=== PATIENT | female | born 1995 | race Caucasian/White ===

== ENCOUNTER 2023-04-29 07:59 | Outpatient (OUT) | payer OTHER, SELFPAY ==
--- NOTE | 2023-04-29 08:06 | US_ITS ---
The [address] [address] Patient Name: SANDIP NOWAK MRN: [id number] date: 1995 Sex: F Assigned Patient Location: US Current Patient Location: US Accession/Order Number: [id number] Exam Date: 04/29/2023 08:05 Report Date: 04/29/2023 15:06 At the request of: BENJIE MOODY Procedure: US OB transvaginal EXAMINATION: US OB transvaginal HISTORY: MISSED PERIOD COMPARISON: No relevant comparison available. FINDINGS: GESTATIONAL SAC: Present and normal appearing. YOLK SAC: Present and normal appearing. POLE: Present and normal appearing. CARDIAC: Present. UTERUS: Normal size and appearance. OVARIES: Right: Corpus lutein cyst. Left: Normal. CERVIX: 4.0 cm in length and closed. CUL-DE-SAC: Normal. OTHER: None. AGE BY LMP: 11 weeks 5 days HAI BY LMP: 11/13/2023 AGE BY US CRL: 11 weeks 1 day HAI BY US CRL: 11/17/2023 IMPRESSION: 1. Single live intrauterine . Electronically authenticated by: IDALMIS SAM Date: 04/29/2023 15:06
== END 2023-04-29 08:00 | disposition home or self-care (01) ==
LOC: US 08:00
PROVIDERS: Visit Provider Obstetrics & Gynecology
DX: N91.2 Amenorrhea, unspecified (principal); Z34.91 Encounter for supervision of normal pregnancy, unspecified, first trimester; Z3A.11 11 weeks gestation of pregnancy; N92.6 Irregular menstruation, unspecified
CPT/HCPCS: 76817

== ENCOUNTER 2023-05-01 15:42 | Outpatient (OUT) | payer OTHER, SELFPAY ==
[2023-05-01 16:15] LABS: Basophils Percent Auto 0.3 % (0.2-2.0); Eosinophils Absolute Auto 0.1 10^3/uL (0.0-0.7); Eosinophils Percent Auto 1.1 % (0.9-7.0); Hematocrit 36.7 % (36.0-48.0); Immature Granulocytes Abs Auto 0.01 10^3/uL (0.00-0.03); Immature Granulocytes Pct Auto 0.2 % (0.0-0.5); Lymphocytes Absolute Auto 1.4 10^3/uL (1.2-3.8); Lymphocytes Percent Auto 22.8 % (20.5-60.0); Mean Corpuscular HGB Conc 32.7 g/dL (29.9-35.2); Mean Corpuscular Hemoglobin 28.9 pg (26.7-34.0); Mean Corpuscular Volume 88.4 fL (81.0-99.0); Monocytes Absolute Auto 0.4 10^3/uL (0.3-0.8); Monocytes Percent Auto 6.5 % (1.7-12.0); Neutrophils Absolute Auto 4.3 10^3/uL (1.4-6.5); Neutrophils Percent Auto 69.1 % (43.0-75.0); Platelet Count 278 10^3/uL (150-450); Red Blood Count 4.15 10^6/uL (4.20-5.40); White Blood Count 6.2 10^3/uL (4.0-11.0)
[2023-05-01 16:58] LABS: Thyroid Stimulating Hormone 0.621 uIU/mL (0.358-3.740)
[2023-05-01 17:16] LABS: Estimated Average Glucose 91 mg/dL; Glycohemoglobin A1C 4.8 % (4.5-6.2)
[2023-05-03 08:09] LABS: Rubella Antibodies, IgG 2.93 index (Immune >0.99)
[2023-05-03 09:07] LABS: HBsAg Screen Negative (Negative); HCV Ab Non Reactive (Non Reactive); HIV Ab/p24 Ag Screen Non Reactive (Non Reactive); Rapid Plasma Reagin, Quant Non Reactive (NonRea<1:1)
== END 2023-05-01 15:43 ==
PROVIDERS: Visit Provider Obstetrics & Gynecology
DX: Z34.91 Encounter for supervision of normal pregnancy, unspecified, first trimester (principal)
CPT/HCPCS: 36415; 83036; 84443; 85025; 86592; 86762; 86803; 86850; 86900; 86901; 87086; 87340; 87389

== ENCOUNTER 2023-06-03 19:49 | Outpatient (REF) | payer OTHER, SELFPAY ==
[2023-06-09 10:20] LABS: Age Gdln ACOG Testing Note (.); IGP, rfx Aptima HPV ASCU Note (.)
== END 2023-06-03 19:50 | disposition home or self-care (01) ==
LOC: LAB 19:49
PROVIDERS: Visit Provider Obstetrics & Gynecology
DX: Z12.4 Encounter for screening for malignant neoplasm of cervix (principal); Z11.51 Encounter for screening for human papillomavirus (HPV)
CPT/HCPCS: G0145

== ENCOUNTER 2023-06-30 15:44 | Outpatient (OUT) | payer OTHER, SELFPAY ==
--- NOTE | 2023-06-30 | US_ITS ---
[address] [address] Patient Name: SANDIP NOWAK MRN: [id number] date: 1995 Sex: F Assigned Patient Location: US Current Patient Location: Accession/Order Number: [id number] Exam Date: 06/30/2023 16:05 Report Date: 07/01/2023 08:05 At the request of: BENJIE MOODY Procedure: US OB transvaginal PROCEDURE: US OB transvaginal, US OB anatomy HISTORY: Second Trimester COMPARISON: Ultrasound OB transvaginal 04/29/2023 TECHNIQUE: Transabdominal sonographic examination was performed for obstetrical and evaluation. FINDINGS: Number: 1 Heart Rate: 125.0 bpm H.B. /min Amniotic Fluid Volume: Subjectively normal Placental Location: POSTERIOR with lower margin 3.3 cm from os. Cervix Length: 4 cm, closed. ANATOMY: Normal Structures -cerebellum, choroid plexus, cisterna magna, lateral cerebral ventricles, orbits, midline falx, hard palate, four-chamber heart, RVOT, LVOT, stomach, kidneys, bladder, umbilical cord insertion into abdomen, three-vessel cord, cervical spine, thoracic spine, lumbar spine, sacral spine, right upper extremity, left upper extremity, right lower extremity, left lower extremity. SUBOPTIMALLY SEEN: None ABNORMALITIES: None BIOMETRY: BPD: 4.7 cm 20 weeks 1 days HC: 17.5 cm 20 weeks 0 days AC:15.3 cm 20 weeks 3 days FL: 3.0 cm 19 weeks 3 days EFW: 326.0 grams FL/AC: 19.9 FL/BPD: 65.1 HC/AC: 1.1 GESTATIONAL AGE: Age by EDC: 20 weeks 4 days HAI by EDC: 11/13/2023 Ultrasound Age: 20 weeks 0 days Ultrasound HAI: 11/17/2023 US/US OB transvaginal IMPRESSION: 1. Single live intrauterine with growth detailed above. Electronically authenticated by: IDALMIS SAM Date: 07/01/2023 08:05
--- NOTE | 2023-06-30 | US_ITS ---
[address] [address] Patient Name: SANDIP NOWAK MRN: [id number] date: 1995 Sex: F Assigned Patient Location: US Current Patient Location: Accession/Order Number: [id number] Exam Date: 06/30/2023 16:05 Report Date: 07/01/2023 08:05 At the request of: BENJIE MOODY Procedure: US OB anatomy PROCEDURE: US OB transvaginal, US OB anatomy HISTORY: Second Trimester COMPARISON: Ultrasound OB transvaginal 04/29/2023 TECHNIQUE: Transabdominal sonographic examination was performed for obstetrical and evaluation. FINDINGS: Number: 1 Heart Rate: 125.0 bpm H.B. /min Amniotic Fluid Volume: Subjectively normal Placental Location: POSTERIOR with lower margin 3.3 cm from os. Cervix Length: 4 cm, closed. ANATOMY: Normal Structures -cerebellum, choroid plexus, cisterna magna, lateral cerebral ventricles, orbits, midline falx, hard palate, four-chamber heart, RVOT, LVOT, stomach, kidneys, bladder, umbilical cord insertion into abdomen, three-vessel cord, cervical spine, thoracic spine, lumbar spine, sacral spine, right upper extremity, left upper extremity, right lower extremity, left lower extremity. SUBOPTIMALLY SEEN: None ABNORMALITIES: None BIOMETRY: BPD: 4.7 cm 20 weeks 1 days HC: 17.5 cm 20 weeks 0 days AC:15.3 cm 20 weeks 3 days FL: 3.0 cm 19 weeks 3 days EFW: 326.0 grams FL/AC: 19.9 FL/BPD: 65.1 HC/AC: 1.1 GESTATIONAL AGE: Age by EDC: 20 weeks 4 days HAI by EDC: 11/13/2023 Ultrasound Age: 20 weeks 0 days Ultrasound HAI: 11/17/2023 US/US OB anatomy IMPRESSION: 1. Single live intrauterine with growth detailed above. Electronically authenticated by: IDALMIS SAM Date: 07/01/2023 08:05
[2023-07-05 00:11] LABS: AFP Value 98.2 ng/mL (.); Gestat. Age Based On As provided (.); Maternal Age At EDD 27.8 yr (.); OSBR Risk 1 IN See interpretation. (.); Results Report (.)
== END 2023-06-30 15:45 | disposition home or self-care (01) ==
LOC: US 15:45
PROVIDERS: Visit Provider Obstetrics & Gynecology
DX: Z34.92 Encounter for supervision of normal pregnancy, unspecified, second trimester (principal)
CPT/HCPCS: 36415; 76805; 76817; 82105

== ENCOUNTER 2023-08-22 09:10 | Outpatient (OUT) | payer OTHER, SELFPAY ==
[2023-08-22 10:30] LABS: Basophils Percent Auto 0.7 % (0.2-2.0); Eosinophils Absolute Auto 0.1 10^3/uL (0.0-0.7); Eosinophils Percent Auto 1.2 % (0.9-7.0); Hematocrit 31.1 % (36.0-48.0); Immature Granulocytes Abs Auto 0.03 10^3/uL (0.00-0.03); Immature Granulocytes Pct Auto 0.5 % (0.0-0.5); Lymphocytes Absolute Auto 0.9 10^3/uL (1.2-3.8); Lymphocytes Percent Auto 14.7 % (20.5-60.0); Mean Corpuscular HGB Conc 32.2 g/dL (29.9-35.2); Mean Corpuscular Hemoglobin 28.9 pg (26.7-34.0); Mean Corpuscular Volume 89.9 fL (81.0-99.0); Mean Platelet Volume 10.2 fL (9.5-13.5); Monocytes Absolute Auto 0.4 10^3/uL (0.3-0.8); Monocytes Percent Auto 6.4 % (1.7-12.0); Neutrophils Absolute Auto 4.4 10^3/uL (1.4-6.5); Neutrophils Percent Auto 76.5 % (43.0-75.0); Platelet Count 201 10^3/uL (150-450); Red Blood Count 3.46 10^6/uL (4.20-5.40); Red Cell Distribution Width 14.2 % (11.0-15.0); White Blood Count 5.8 10^3/uL (4.0-11.0)
[2023-08-22 10:34] LABS: Glucose 1 Hour 161 mg/dL
== END 2023-08-22 09:11 | disposition home or self-care (01) ==
LOC: LAB 09:12
PROVIDERS: PCP Family Medicine; Visit Provider Obstetrics & Gynecology
DX: Z34.92 Encounter for supervision of normal pregnancy, unspecified, second trimester (principal)
CPT/HCPCS: 36415; 82950; 85025

== ENCOUNTER 2023-08-28 07:19 | Outpatient (OUT) | payer OTHER, SELFPAY ==
[2023-08-28 07:45] LABS: Glucose Fasting 83 mg/dL (74-106)
[2023-08-28 09:26] LABS: Glucose 1 Hour 159 mg/dL
[2023-08-28 10:26] LABS: Glucose 2 Hour 136 mg/dL
[2023-08-28 11:10] LABS: Glucose 3 Hour 97 mg/dL
== END 2023-08-28 07:20 | disposition home or self-care (01) ==
LOC: LAB 07:20
PROVIDERS: PCP Family Medicine; Visit Provider Physician Assistant
DX: R73.09 Other abnormal glucose (principal)
CPT/HCPCS: 36415; 82951; 82952

== ENCOUNTER 2023-10-19 21:40 | Outpatient (OUT) | payer OTHER, SELFPAY | END 2023-10-19 21:41 | disposition home or self-care (01) | LOC: LAB 21:43 | PROVIDERS: PCP Family Medicine; Visit Provider Obstetrics & Gynecology | DX: Z34.93 Encounter for supervision of normal pregnancy, unspecified, third trimester (principal) | CPT/HCPCS: 87081; 87150; 87186 ==

== ENCOUNTER 2023-10-26 04:08 | Inpatient (IN) | payer OTHER, SELFPAY ==
[2023-10-26] VITALS (39 sets, daily range): BP systolic 99–139; BP diastolic 54–80; PULSE 48–83; RESP 16–18; TEMP 36.1–37.7
[2023-10-26 04:47] LABS: Bilirubin Urine NEGATIVE (NEGATIVE); Blood Urine NEGATIVE (NEGATIVE); Clarity Urine CLEAR (CLEAR); Color Urine LT. YELLOW (YELLOW); Glucose Urine UA NEGATIVE (NEGATIVE); Ketones Urine NEGATIVE (NEGATIVE); Leukocyte Esterase Urine NEGATIVE (NEGATIVE); Nitrite Urine NEGATIVE (NEGATIVE); Protein Urine NEGATIVE (NEG/TRACE); Specific Gravity Urine 1.015 (1.005-1.025); Urobilinogen Urine 0.2 EU/dL (0.2-1.0)
[2023-10-26 04:49] LABS: Urine Microscopic Indicated NO
[2023-10-26 04:50] LABS: Amnisure POSITIVE (NEGATIVE)
[2023-10-26 06:23] LABS: Hematocrit 31.9 % (36.0-48.0); Hemoglobin 9.8 g/dL (12.0-16.0); Mean Corpuscular HGB Conc 30.7 g/dL (29.9-35.2); Mean Corpuscular Hemoglobin 26.2 pg (26.7-34.0); Mean Corpuscular Volume 85.3 fL (81.0-99.0); Mean Platelet Volume 11.7 fL (9.5-13.5); Platelet Count 189 10^3/uL (150-450); Red Blood Count 3.74 10^6/uL (4.20-5.40); Red Cell Distribution Width 14.6 % (11.0-15.0); White Blood Count 7.7 10^3/uL (4.0-11.0)
[2023-10-26] MEDS: 0.9 % SODIUM CHLORIDE 1,000 ML 125 ML IV (06:30)
[2023-10-26] MEDS: AMPICILLIN SODIUM 2,000 MG in 0.9 % SODIUM CHLORIDE 100 ML 200 MG IV (06:30)
[2023-10-26] MEDS: OXYTOCIN/0.9 % SODIUM CHLORIDE 10 UNITS/500 ML PLAST..BAG 6 UNIT IV (06:50)
--- NOTE | 2023-10-26 07:51 | W.PC.ACHO ---
Registration Status: ADM IN Primary Language: Afghan Preferred Language: Afghan Active Medications Generic Name Dose Route Start Last Admin Trade Name Freq PRN Reason Stop Dose Admin Diphenhydramine HCl 25 mg 10/26/23 06:57 Diphenhydramine Hcl 50 Mg/Ml (1ml) Vial IV 10/27/23 06:58 Q6H PRN Itching Ephedrine Sulfate 5 mg 10/26/23 06:57 Ephedrine Sulfate 50 Mg/Ml Vial IV 10/27/23 06:58 Q5M PRN Blood Pressure - Low Fentanyl Citrate 100 mcg 10/26/23 06:57 Fentanyl Citrate/Pf 100 Mcg/2 Ml Vial EPIDURAL ONCE PRN epidural Fentanyl Citrate 100 mcg 10/26/23 06:57 Fentanyl Citrate/Pf 100 Mcg/2 Ml Vial EPIDURAL ONCE PRN epidural Sodium Chloride 1,000 mls @ 125 mls/hr 10/26/23 05:15 10/26/23 06:30 Sodium Chloride 0.9% 1,000 Ml IV 125 mls/hr .Q8H MAYO Administration Oxytocin/Sodium Chloride 10 units in 500 mls @ 6 mls/hr 10/26/23 05:15 10/26/23 06:50 Pitocin 10 Unit/500 Ml-Ns IV 2 milliunit/min CONT MAYO 6 mls/hr Administration Protocol 2 MILLIUNIT/MIN Ampicillin 1,000 mg/ Sodium 50 mls @ 100 mls/hr 10/26/23 09:30 Chloride IV Q4H MAYO Oxytocin/Sodium Chloride 20 units in 1,000 mls @ 125 mls/hr 10/26/23 05:15 Pitocin 20 Unit/1,000 Ml-Ns IV 10/26/23 13:14 Q8H MAYO Sodium Chloride 1,000 mls @ 1,000 mls/hr 10/26/23 06:57 Sodium Chloride 0.9% 1,000 Ml IV 10/26/23 07:56 .Q1H ONE Ropivacaine/Sodium Chloride 400 mg in 200 mls @ 6 mls/hr 10/26/23 07:00 Naropin 0.2% 400 Mg/200 Ml Bag EPIDURAL Q24H MAYO Lidocaine 5 ml 10/26/23 05:15 Lidocaine Viscous 2% 15 Ml Solution TOPICAL ONCE PRN Pain Lidocaine 1 ml 10/26/23 05:15 Lidocaine Hcl 1% 200 Mg/20 Ml Mdv INJ ONCE PRN Pain Lidocaine 5 ml 10/26/23 06:57 Lidocaine Hcl 2% Pf 100 Mg/5 Ml Vial INJ 10/27/23 06:58 Q1H PRN epidural Methylergonovine Maleate 0.2 mg 10/26/23 05:15 Methylergonovine Maleate 0.2 Mg/Ml Ampule IM 10/28/23 05:15 ONCE PRN Uterine Contractility/Contract Methylergonovine Maleate 0.2 mg 10/26/23 05:15 Methylergonovine Maleate 0.2 Mg Tablet PO 10/28/23 05:15 Q4H PRN Uterine Contractility/Contract Misoprostol 600 mcg 10/26/23 05:15 Misoprostol 100 Mcg Tablet PO 10/28/23 05:15 ONCE PRN Uterine Bleeding Misoprostol 800 mcg 10/26/23 05:15 Misoprostol 100 Mcg Tablet SL 10/28/23 05:15 ONCE PRN Uterine Bleeding Misoprostol 1,000 mcg 10/26/23 05:15 Misoprostol 100 Mcg Tablet SC 10/28/23 05:15 ONCE PRN Uterine Bleeding Naloxone HCl 0.4 mg 10/26/23 06:57 Naloxone Hcl 0.4 Mg/Ml Vial IV 10/27/23 06:58 ONCE PRN respiratory distress Ondansetron HCl 4 mg 10/26/23 05:15 Ondansetron Pf 4 Mg/2 Ml Vial IV Q6H PRN Nausea And Vomiting Ondansetron HCl 4 mg 10/26/23 05:15 Ondansetron 4 Mg Rapdis Tablet SL Q6H PRN Nausea And Vomiting Oxytocin 10 unit 10/26/23 05:15 Oxytocin 10 Unit/Ml Vial IM 10/28/23 05:15 ONCE PRN Bleeding Diet Category Date Time Status Regular Consistency Diet Diet 10/26/23 05:16 Active IV Insertion/Site Date of IV Line Insertion [20g 10/26/23 right Forearm] IV Insertion Time [20g right 05:55 Forearm] Neurology Patient orientation (short person,place,time,situation list)
[2023-10-26] MEDS: LIDOCAINE HCL 2% PF 100 MG/5 ML VIAL INJ (08:09)
[2023-10-26] MEDS: ROPIVACAINE HCL/PF 400 MG/200 ML PREMIX 6 MG EPIDURAL (08:09)
[2023-10-26] MEDS: FENTANYL CITRATE/PF 100 MCG/2 ML VIAL EPIDURAL ×2 (08:09→08:10)
[2023-10-26] MEDS: 0.9 % SODIUM CHLORIDE 1,000 ML 1000 ML IV (08:18)
[2023-10-26] MEDS: AMPICILLIN SODIUM 1,000 MG in 0.9 % SODIUM CHLORIDE 50 ML 100 MG IV (09:39)
[2023-10-26] MEDS: OXYTOCIN/0.9 % SODIUM CHLORIDE 20 UNITS/1,000 ML PLAST..BAG 125 UNIT IV (10:45)
--- NOTE | 2023-10-26 11:02 | PM.OBPRCVD ---
Procedure Intrapartal events: None Delivery augmentation: pitocin Delivery monitor: external FHT and external uterine Route of delivery: Episiotomy Description: none Laceration description: none Anesthesia type: Epidural Disposition: floor Infant Gender: male presentation: vertex Placental delivery description: Spontaneous cord description: 3 Vessels
[2023-10-26] MEDS: IBUPROFEN 600 MG TABLET PO ×2 (11:44→21:14)
[2023-10-26 15:48] LABS: Amphetamine Screen Urine NEGATIVE (NEGATIVE); Barbiturates Screen Urine NEGATIVE (NEGATIVE); Benzodiazepines Screen Urine NEGATIVE (NEGATIVE); Buprenorphine Screen Urine NEGATIVE (NEGATIVE); Cannabinoid Screen Urine NEGATIVE (NEGATIVE); Cocaine Screen Urine NEGATIVE (NEGATIVE); Methadone Screen Urine NEGATIVE (NEGATIVE); Methamphetamines Screen Urine NEGATIVE (NEGATIVE); Opiate Screen Urine NEGATIVE (NEGATIVE); Oxycodone Screen Urine NEGATIVE (NEGATIVE); Phencyclidine Screen Urine NEGATIVE (NEGATIVE); Tricyclic Antidepressant Urine NEGATIVE (NEGATIVE)
[2023-10-26] MEDS: BENZOCAINE/MENTHOL 85 GRAM SPRAY BOTTLE 1 APPLIC TOPICAL (16:21)
[2023-10-26] MEDS: GLYCERIN/WITCH HAZEL PADS 1 PAD TOPICAL (16:22)
--- NOTE | 2023-10-26 16:51 | PC.NURSE ---
agree with student assessment- Ronald LANEN, RN -[place] Clinical Instructor
--- NOTE | 2023-10-26 17:05 | PC.NURSE ---
Agree with student assessment- Ronald LANEN, RN - [place] clinical instructor
--- NOTE | 2023-10-26 19:11 | W.PC.ACHO ---
Registration Status: ADM IN Primary Language: Qatari Preferred Language: Qatari Active Medications Generic Name Dose Route Start Last Admin Trade Name Maria Antonia PRN Reason Stop Dose Admin Acetaminophen 650 mg 10/26/23 11:01 Acetaminophen 325 Mg Tablet PO Q6H PRN Mild Pain Al Hydroxide/Mg Hydroxide 2,400 mg 10/26/23 11:01 Magnesium Hydroxide 2,400 Mg/10 Ml Oral.Susp PO Q6H PRN Dyspepsia Benzocaine/Menthol 1 applic 10/26/23 11:01 10/26/23 16:21 Benzocaine/Menthol 85 Gram [place] Bottle TOPICAL 1 applic Q2H PRN Administration Pain Diphenhydramine HCl 25 mg 10/26/23 06:57 Diphenhydramine Hcl 50 Mg/Ml (1ml) Vial IV 10/27/23 06:58 Q6H PRN Itching Diphtheria/Pertussis/Tetanus Vacc 0.5 ml 10/28/23 09:00 Adacel Diph,Pertuss(Acell),Tet Vac/Pf 0.5 Ml Adult Syringe IM 10/28/23 09:01 .ONCE ONE Docusate Sodium 100 mg 10/27/23 09:00 Docusate Sodium 100 Mg Capsule PO BID MAYO Ephedrine Sulfate 5 mg 10/26/23 06:57 Ephedrine Sulfate 50 Mg/Ml Vial IV 10/27/23 06:58 Q5M PRN Blood Pressure - Low Fentanyl Citrate 100 mcg 10/26/23 06:57 10/26/23 08:09 Fentanyl Citrate/Pf 100 Mcg/2 Ml Vial EPIDURAL 100 mcg ONCE PRN Administration epidural Fentanyl Citrate 100 mcg 10/26/23 06:57 10/26/23 08:10 Fentanyl Citrate/Pf 100 Mcg/2 Ml Vial EPIDURAL 100 mcg ONCE PRN Administration epidural Sodium Chloride 1,000 mls @ 125 mls/hr 10/26/23 05:15 10/26/23 06:30 Sodium Chloride 0.9% 1,000 Ml IV 125 mls/hr .Q8H MAYO Administration Oxytocin/Sodium Chloride 10 units in 500 mls @ 6 mls/hr 10/26/23 05:15 10/26/23 06:50 Pitocin 10 Unit/500 Ml-Ns IV 2 milliunit/min CONT MAYO 6 mls/hr Administration Protocol 2 MILLIUNIT/MIN Ampicillin 1,000 mg/ Sodium 50 mls @ 100 mls/hr 10/26/23 09:30 10/26/23 09:39 Chloride IV 100 mls/hr Q4H MAYO Administration Ropivacaine/Sodium Chloride 400 mg in 200 mls @ 6 mls/hr 10/26/23 07:00 10/26/23 08:09 Naropin 0.2% 400 Mg/200 Ml Bag EPIDURAL 6 mls/hr Q24H MAYO Administration Oxytocin 20 unit/ Sodium 1,002 mls @ 125 mls/hr 10/26/23 12:00 Chloride IV 10/26/23 19:59 Q8H MAYO Ibuprofen 600 mg 10/26/23 11:01 10/26/23 11:44 Ibuprofen 600 Mg Tablet PO 600 mg Q6H PRN Administration Moderate Pain Lidocaine 5 ml 10/26/23 05:15 Lidocaine Viscous 2% 15 Ml Solution TOPICAL ONCE PRN Pain Lidocaine 1 ml 10/26/23 05:15 Lidocaine Hcl 1% 200 Mg/20 Ml Mdv INJ ONCE PRN Pain Lidocaine 5 ml 10/26/23 06:57 10/26/23 08:09 Lidocaine Hcl 2% Pf 100 Mg/5 Ml Vial INJ 10/27/23 06:58 5 ml Q1H PRN Administration epidural Measles/Mumps/Rubella Vaccine Live 0.5 ml 10/28/23 09:00 Measles,Mumps,Rubella Vacc/Pf 0.5 Ml Vial SQ 10/28/23 09:01 .ONCE ONE Methylergonovine Maleate 0.2 mg 10/26/23 05:15 Methylergonovine Maleate 0.2 Mg/Ml Ampule IM 10/28/23 05:15 ONCE PRN Uterine Contractility/Contract Methylergonovine Maleate 0.2 mg 10/26/23 05:15 Methylergonovine Maleate 0.2 Mg Tablet PO 10/28/23 05:15 Q4H PRN Uterine Contractility/Contract Misoprostol 600 mcg 10/26/23 05:15 Misoprostol 100 Mcg Tablet PO 10/28/23 05:15 ONCE PRN Uterine Bleeding Misoprostol 800 mcg 10/26/23 05:15 Misoprostol 100 Mcg Tablet SL 10/28/23 05:15 ONCE PRN Uterine Bleeding Misoprostol 1,000 mcg 10/26/23 05:15 Misoprostol 100 Mcg Tablet [place] 10/28/23 05:15 ONCE PRN Uterine Bleeding Naloxone HCl 0.4 mg 10/26/23 06:57 Naloxone Hcl 0.4 Mg/Ml Vial IV 10/27/23 06:58 ONCE PRN respiratory distress Ondansetron HCl 4 mg 10/26/23 05:15 Ondansetron Pf 4 Mg/2 Ml Vial IV Q6H PRN Nausea And Vomiting Ondansetron HCl 4 mg 10/26/23 05:15 Ondansetron 4 Mg Rapdis Tablet SL Q6H PRN Nausea And Vomiting Oxytocin 10 unit 10/26/23 05:15 Oxytocin 10 Unit/Ml Vial IM 10/28/23 05:15 ONCE PRN Bleeding Senna 17.2 mg 10/26/23 20:00 Sennosides 8.6 Mg Tablet PO QHS PRN Constipation Simethicone 80 mg 10/26/23 11:01 Simethicone 80 Mg Tab.Chew PO QID PRN Abdominal Distention Temazepam 15 mg 10/26/23 11:01 Temazepam 15 Mg Capsule PO QHS PRN Sleep Witch Bernice/Glycerin 1 pad 10/26/23 11:01 10/26/23 16:22 Glycerin/Witch Bernice Pads TOPICAL 1 pad Q2H PRN Administration Pain Diet Category Date Time Status Regular Consistency Diet Diet 10/26/23 11:01 Active IV Insertion/Site Date of IV Line Insertion [20g 10/26/23 right Forearm] IV Insertion Time [20g right 05:55 Forearm] Neurology Patient orientation (short person,place,time,situation list) Respiratory Oxygen Delivery Method Room Air Cardiology Heart Sounds Strong,Regular Renal Bladder Pattern Continent Bladder Pattern Continent
[2023-10-27] VITALS (7 sets, daily range): BP systolic 106–111; BP diastolic 56–64; PULSE 67–68; RESP 14–18; TEMP 36.6–37.1
[2023-10-27 06:31] LABS: Basophils Percent Auto 0.5 % (0.2-2.0); Eosinophils Absolute Auto 0.2 10^3/uL (0.0-0.7); Eosinophils Percent Auto 1.8 % (0.9-7.0); Hemoglobin 9.2 g/dL (12.0-16.0); Immature Granulocytes Abs Auto 0.05 10^3/uL (0.00-0.03); Immature Granulocytes Pct Auto 0.6 % (0.0-0.5); Lymphocytes Absolute Auto 1.8 10^3/uL (1.2-3.8); Lymphocytes Percent Auto 21.3 % (20.5-60.0); Mean Corpuscular HGB Conc 30.7 g/dL (29.9-35.2); Mean Corpuscular Hemoglobin 26.5 pg (26.7-34.0); Mean Corpuscular Volume 86.5 fL (81.0-99.0); Mean Platelet Volume 11.5 fL (9.5-13.5); Monocytes Absolute Auto 0.7 10^3/uL (0.3-0.8); Monocytes Percent Auto 8.3 % (1.7-12.0); Neutrophils Absolute Auto 5.6 10^3/uL (1.4-6.5); Neutrophils Percent Auto 67.5 % (43.0-75.0); Platelet Count 166 10^3/uL (150-450); Red Blood Count 3.47 10^6/uL (4.20-5.40); Red Cell Distribution Width 14.8 % (11.0-15.0); White Blood Count 8.2 10^3/uL (4.0-11.0)
--- NOTE | 2023-10-27 07:11 | W.PC.ACHO ---
Registration Status: ADM IN Primary Language: Israeli Preferred Language: Israeli Active Medications Generic Name Dose Route Start Last Admin Trade Name Maria Antonia PRN Reason Stop Dose Admin Acetaminophen 650 mg 10/26/23 11:01 Acetaminophen 325 Mg Tablet PO Q6H PRN Mild Pain Al Hydroxide/Mg Hydroxide 2,400 mg 10/26/23 11:01 Magnesium Hydroxide 2,400 Mg/10 Ml Oral.Susp PO Q6H PRN Dyspepsia Benzocaine/Menthol 1 applic 10/26/23 11:01 10/26/23 16:21 Benzocaine/Menthol 85 Gram [place] Bottle TOPICAL 1 applic Q2H PRN Administration Pain Diphtheria/Pertussis/Tetanus Vacc 0.5 ml 10/28/23 09:00 Adacel Diph,Pertuss(Acell),Tet Vac/Pf 0.5 Ml Adult Syringe IM 10/28/23 09:01 .ONCE ONE Docusate Sodium 100 mg 10/27/23 09:00 Docusate Sodium 100 Mg Capsule PO BID MAYO Fentanyl Citrate 100 mcg 10/26/23 06:57 10/26/23 08:09 Fentanyl Citrate/Pf 100 Mcg/2 Ml Vial EPIDURAL 100 mcg ONCE PRN Administration epidural Fentanyl Citrate 100 mcg 10/26/23 06:57 10/26/23 08:10 Fentanyl Citrate/Pf 100 Mcg/2 Ml Vial EPIDURAL 100 mcg ONCE PRN Administration epidural Sodium Chloride 1,000 mls @ 125 mls/hr 10/26/23 05:15 10/26/23 06:30 Sodium Chloride 0.9% 1,000 Ml IV 125 mls/hr .Q8H MAYO Administration Oxytocin/Sodium Chloride 10 units in 500 mls @ 6 mls/hr 10/26/23 05:15 10/26/23 06:50 Pitocin 10 Unit/500 Ml-Ns IV 2 milliunit/min CONT MAYO 6 mls/hr Administration Protocol 2 MILLIUNIT/MIN Ampicillin 1,000 mg/ Sodium 50 mls @ 100 mls/hr 10/26/23 09:30 10/26/23 09:39 Chloride IV 100 mls/hr Q4H MAYO Administration Ropivacaine/Sodium Chloride 400 mg in 200 mls @ 6 mls/hr 10/26/23 07:00 10/26/23 08:09 Naropin 0.2% 400 Mg/200 Ml Bag EPIDURAL 6 mls/hr Q24H MAYO Administration Ibuprofen 600 mg 10/26/23 11:01 10/26/23 21:14 Ibuprofen 600 Mg Tablet PO 600 mg Q6H PRN Administration Moderate Pain Lidocaine 5 ml 10/26/23 05:15 Lidocaine Viscous 2% 15 Ml Solution TOPICAL ONCE PRN Pain Lidocaine 1 ml 10/26/23 05:15 Lidocaine Hcl 1% 200 Mg/20 Ml Mdv INJ ONCE PRN Pain Measles/Mumps/Rubella Vaccine Live 0.5 ml 10/28/23 09:00 Measles,Mumps,Rubella Vacc/Pf 0.5 Ml Vial SQ 10/28/23 09:01 .ONCE ONE Methylergonovine Maleate 0.2 mg 10/26/23 05:15 Methylergonovine Maleate 0.2 Mg/Ml Ampule IM 10/28/23 05:15 ONCE PRN Uterine Contractility/Contract Methylergonovine Maleate 0.2 mg 10/26/23 05:15 Methylergonovine Maleate 0.2 Mg Tablet PO 10/28/23 05:15 Q4H PRN Uterine Contractility/Contract Misoprostol 600 mcg 10/26/23 05:15 Misoprostol 100 Mcg Tablet PO 10/28/23 05:15 ONCE PRN Uterine Bleeding Misoprostol 800 mcg 10/26/23 05:15 Misoprostol 100 Mcg Tablet SL 10/28/23 05:15 ONCE PRN Uterine Bleeding Misoprostol 1,000 mcg 10/26/23 05:15 Misoprostol 100 Mcg Tablet [place] 10/28/23 05:15 ONCE PRN Uterine Bleeding Ondansetron HCl 4 mg 10/26/23 05:15 Ondansetron Pf 4 Mg/2 Ml Vial IV Q6H PRN Nausea And Vomiting Ondansetron HCl 4 mg 10/26/23 05:15 Ondansetron 4 Mg Rapdis Tablet SL Q6H PRN Nausea And Vomiting Oxytocin 10 unit 10/26/23 05:15 Oxytocin 10 Unit/Ml Vial IM 10/28/23 05:15 ONCE PRN Bleeding Senna 17.2 mg 10/26/23 20:00 Sennosides 8.6 Mg Tablet PO QHS PRN Constipation Simethicone 80 mg 10/26/23 11:01 Simethicone 80 Mg Tab.Chew PO QID PRN Abdominal Distention Temazepam 15 mg 10/26/23 11:01 Temazepam 15 Mg Capsule PO QHS PRN Sleep Witch Bernice/Glycerin 1 pad 10/26/23 11:01 10/26/23 16:22 Glycerin/Witch [place] Pads TOPICAL 1 pad Q2H PRN Administration Pain Diet Category Date Time Status Regular Consistency Diet Diet 10/26/23 11:01 Active Respiratory Oxygen Delivery Method Room Air Oxygen Delivery Method Room Air Oxygen Delivery Method Room Air Oxygen Delivery Method Room Air Cardiology Heart Sounds Strong,Regular Heart Sounds Strong,Regular Heart Sounds Strong,Regular Renal Bladder Pattern Continent Bladder Pattern Continent Bladder Pattern Continent Bladder Pattern Continent
[2023-10-27] MEDS: DOCUSATE SODIUM 100 MG CAPSULE PO ×2 (08:23→20:54)
[2023-10-27] MEDS: IBUPROFEN 600 MG TABLET PO ×2 (08:23→20:54)
--- NOTE | 2023-10-27 11:49 | PM.OBDS ---
DS: Providers Provider Date of admission: 10/26/23 05:20 Primary care physician: ANGELICA LOJA OB - DS: Summary Delivery method: spontaneous vaginal delivery Gender: male Time Spent with Patient Time attestation: Total time spent providing and/or coordinating discharge services: Time spent: less than 30 minutes Exam Constitutional Vital Signs, click to edit/add: Last Vital Signs Temp 98.7 F 10/27/23 08:38 Pulse 67 10/27/23 08:12 Resp 16 10/27/23 08:00 BP 106/59 10/27/23 08:12 O2 Del Method Room Air 10/27/23 08:00 DS: Data Data Completed and Pending Labs on day of discharge: Labs from last 24 hours 10/27/23 10/26/23 06:15 04:17 WBC 8.2 RBC 3.47 L Hgb 9.2 L Hct 30.0 L MCV 86.5 MCH 26.5 L MCHC 30.7 RDW 14.8 Plt Count 166 MPV 11.5 Neut % (Auto) 67.5 Lymph % (Auto) 21.3 [place] % (Auto) 8.3 Eos % (Auto) 1.8 Baso % (Auto) 0.5 Neut # (Auto) 5.6 Lymph # (Auto) 1.8 [place] # (Auto) 0.7 Eos # (Auto) 0.2 Baso # (Auto) 0.0 Abs Immat Gran (auto) 0.05 H Imm/Tot Granulo (auto) 0.6 H Urine Opiates Screen Negative Ur Buprenorphine Scrn Negative Ur Oxycodone Screen Negative Urine Methadone Screen Negative Ur Barbiturates Screen Negative U Tricyclic Antidepress Negative Ur Phencyclidine Scrn Negative Ur Amphetamines Screen Negative U Methamphetamines Scrn Negative U Benzodiazepines Scrn Negative Urine Cocaine Screen Negative U Cannabinoids Screen Negative Discharge Plan Discharge Disposition: Home, Self-Care Discharge Medications: Continued ProAir RespiClick 90 mcg/actuation aerosol powdr breath activated INHALATION Activity: increase activity as tolerated Diet: regular diet Forms: Vaginal Delivery - Discharge, Portal Instructions Follow Up Appointments: follow up in 6 weeks Discharge Date/Time: 10/28/23 12:15
--- NOTE | 2023-10-27 11:51 | PM.OBPN ---
OB - PN: Subj Subjective Patient comments: no complaints and pain well controlled [place] status: doing well Exam Constitutional Vital Signs, click to edit/add: Last Vital Signs Temp 98.7 F 10/27/23 08:38 Pulse 67 10/27/23 08:12 Resp 16 10/27/23 08:00 BP 106/59 10/27/23 08:12 O2 Del Method Room Air 10/27/23 08:00 Documenting provider has reviewed patient's vital signs: yes Common normals: no apparent distress and oriented x3 HENMT Common normals: normocephalic Eye Common normals: EOMs intact bilaterally Neck & C-Spine Common normals: full ROM and no lymphadenopathy General: normal visual inspection Lymph Lymphatic: no lymphadenopathy noted Chest Common normals: inspection of chest normal and palpation of chest normal Respiratory Common normals: normal respiratory effort, no use of accessory muscles and clear to auscultation bilaterally Cardio Common normals: regular rate, regular rhythm and no murmurs GI Common normals: Normal to inspection, nondistended, normoactive bowel sounds present Common normals: no CVA tenderness Back & Pelvis Common normals: no CVA tenderness Extremity Common normals: normal to inspection and full ROM Neuro Common normals: oriented x3 Sensorium/orientation: awake, alert, oriented to person, oriented to place and oriented to time Psych Common normals: mental status grossly normal Results Labs Labs: Short CBC 10/27/23 Range/Units 06:15 WBC 8.2 (4.0-11.0) 10^3/uL Hgb 9.2 L (12.0-16.0) g/dL Hct 30.0 L (36.0-48.0) % Plt Count 166 (150-450) 10^3/uL OB - PN: A/P Plan - Vaginal Delivery day: 1 Plan: routine care Time Spent with Patient Time: Total time spent is greater than 50% in coordination of care (as documented) at patient's floor/unit and/or counseling patient: Total time spent with greater than 50% in coordination of care (as documented) at patient's floor/unit and/or counseling patient: less than 15 minutes
--- NOTE | 2023-10-27 18:56 | PC.NURSE ---
185 All charting, VS, and assessments made by Rocio Dodge nurse internal salesperson reviewed and agreed upon by this RN.
[2023-10-27] MEDS: ACETAMINOPHEN 325 MG TABLET 650 MG PO (19:04)
[2023-10-28 08:05] VITALS: BP 107/55; PULSE 56
[2023-10-28 08:10] VITALS: TEMP 36.6
[2023-10-28] MEDS: ACETAMINOPHEN 325 MG TABLET 650 MG PO (08:14)
[2023-10-28] MEDS: DOCUSATE SODIUM 100 MG CAPSULE PO (08:14)
--- NOTE | 2023-10-28 10:21 | P.OBPN_ITS ---
OB - PN: Subj Subjective Patient comments: no complaints and pain well controlled [place] status: doing well Exam Constitutional Vital Signs, click to edit/add: Last Vital Signs Temp 97.8 F 10/28/23 08:10 Pulse 56 L 10/28/23 08:05 Resp 18 10/27/23 23:10 BP 107/55 10/28/23 08:05 O2 Del Method Room Air 10/28/23 08:10 Documenting provider has reviewed patient's vital signs: yes Common normals: no apparent distress Respiratory Common normals: normal respiratory effort and clear to auscultation bilaterally Cardio Common normals: regular rate and regular rhythm GI Common normals: Normal to inspection, nondistended, normoactive bowel sounds present Extremity Common normals: no calf tenderness OB - PN: A/P Plan - Vaginal Delivery day: 2 Plan: routine care, discharge home and follow up 6 weeks Time Spent with Patient Time: Total time spent is greater than 50% in coordination of care (as documented) at patient's floor/unit and/or counseling patient: Total time spent with greater than 50% in coordination of care (as documented) at patient's floor/unit and/or counseling patient: less than 15 minutes
== END 2023-10-28 12:15 | disposition home or self-care (01) | DRG 807 ==
PROVIDERS: Admitting Provider Obstetrics & Gynecology; PCP Family Medicine; Visit Provider Obstetrics & Gynecology
DX: O99.52 Diseases of the respiratory system complicating childbirth (principal); Z37.0 Single live birth; O70.0 First degree perineal laceration during delivery; O99.824 Streptococcus B carrier state complicating childbirth; Z3A.37 37 weeks gestation of pregnancy; J45.909 Unspecified asthma, uncomplicated
CPT/HCPCS: 36415; 51702; 59025; 59050; 59410; 80307; 81003; 84112; 85025; 85027; 86850; 86900; 86901; 96374; 96375; 96376

== ENCOUNTER 2023-12-07 09:48 | Outpatient (OUT) | payer OTHER, SELFPAY | END 2023-12-07 09:49 | disposition home or self-care (01) | LOC: PST 09:49 | PROVIDERS: PCP Family Medicine; Visit Provider Obstetrics & Gynecology | DX: Z01.818 Encounter for other preprocedural examination (principal); Z30.2 Encounter for sterilization ==

== ENCOUNTER 2023-12-18 08:40 | Day surgery (SDC) | payer OTHER, SELFPAY ==
[2023-12-07 10:06] VITALS: BP 91/57; PULSE 72; RESP 16; TEMP 35.4; O2SAT 99; BMI 23.6
[2023-12-18] VITALS (9 sets, daily range): BP systolic 95–112; BP diastolic 47–72; PULSE 53–76; RESP 10–20; TEMP 36.1–36.4; O2SAT 98–100; BMI 22.7
[2023-12-18 08:55] LABS: Basophils Percent Auto 0.8 % (0.2-2.0); Eosinophils Absolute Auto 0.1 10^3/uL (0.0-0.7); Eosinophils Percent Auto 2.2 % (0.9-7.0); Hematocrit 37.5 % (36.0-48.0); Hemoglobin 11.5 g/dL (12.0-16.0); Immature Granulocytes Abs Auto 0.01 10^3/uL (0.00-0.03); Immature Granulocytes Pct Auto 0.2 % (0.0-0.5); Lymphocytes Absolute Auto 1.3 10^3/uL (1.2-3.8); Lymphocytes Percent Auto 25.6 % (20.5-60.0); Mean Corpuscular HGB Conc 30.7 g/dL (29.9-35.2); Mean Corpuscular Hemoglobin 26.4 pg (26.7-34.0); Mean Platelet Volume 9.5 fL (9.5-13.5); Monocytes Absolute Auto 0.6 10^3/uL (0.3-0.8); Monocytes Percent Auto 11.3 % (1.7-12.0); Neutrophils Percent Auto 59.9 % (43.0-75.0); Platelet Count 261 10^3/uL (150-450); Red Blood Count 4.36 10^6/uL (4.20-5.40); Red Cell Distribution Width 16.4 % (11.0-15.0)
--- OUTSIDE RECORDS SUMMARY | 2023-12-18 08:59 | XMS_ITS | CCD ---
Author Name Unknown Address [facility] [address] [place] [address] Organization [facility] Care Team Providers Care Bottle Selector Name Role Phone SHANTEL CHANG Primary Care Unavailable SAM TY Attending Unavailable KARSON, SAM Consulting Unavailable SAM TY Admitting Unavailable SHANTEL CHANG Primary Care Unavailable FREEDOM, DR DOMINGUEZ Attending Unavailable FREEDOM, DR DOMINGUEZ Consulting Unavailable FREEDOM, DR DOMINGUEZ Admitting Unavailable MISKriss, DR REMY Admitting Unavailable SHANTEL CHANG Primary Care Unavailable KRISTOFER, DR REMY Attending Unavailable MISC, DR REMY Consulting Unavailable Serenity Horowitz Unavailable BENJIE MOODY Attending Unavailable BENJIE MOODY Attending Unavailable BENJIE MOODY Attending Unavailable Medications Current Medications Medication Drug Class(es) Dates Sig (Normalized) Sig (Original) amoxicillin 500 mg oral capsule (1 source) Penicillin-class Antibacterial Start: 01-20-2023 take 1 capsule by mouth every eight hours Amoxicillin 500 MG 1 capsule Orally three times a day for 10 day(s) Jan, Active predniSONE 20 mg oral tablet (1 source) Start: 01-20-2023 take 1 tablet by mouth every twelve hours predniSONE 20 MG 1 tablet Orally 2 times a day for 5 day(s) Jan, Active Problems Active Problems Problem Classification Problem Date Documented Date Episodic/Chronic E Codes: Cut/pierceb (1 source) Contact with other sharp object(s), not elsewhere classified, initial encounter; Translations: [[facility] OT SHRP OB NOT ELSW CLASS INI] Onset: 11-27-2021 Episodic Immunizations and screening for infectious disease (1 source) Encounter for immunization; Translations: [ENCOUNTER FOR IMMUNIZATION] Onset: 01-12-2022 Episodic Open wounds of extremities (4 sources) Laceration without foreign body of left ring finger without damage to nail, initial encounter; Translations: [LAC NO FB LT RF NO DMG NAIL INITIAL] Onset: 11-25-2021 Episodic Other upper respiratory disease (1 source) Nasal congestion Episodic Other upper respiratory infections (1 source) Streptococcal pharyngitis Episodic Unclassified (3 sources) CONTACT W/AND (SUSP) EXPOS COVID-19; Translations: [CONTACT W/AND (SUSP) EXPOS COVID-19] Onset: 08-09-2021 Viral infection (1 source) COVID-19; Translations: [COVID-19] Onset: 08-19-2021 Past or Other Problems Problem Classification Problem Date Documented Da te Episodic/Chronic Fever of unknown origin (1 source) Fever, unspecified; Translations: [FEVER UNSPECIFIED] Onset: 08-19-2021 Episodic Other lower respiratory disease (1 source) Shortness of breath; Translations: [SHORTNESS OF BREATH] Onset: 08-19-2021 Episodic Other lower respiratory disease (1 source) Cough; Translations: [COUGH] Onset: 08-19-2021 Episodic Unclassified (1 source) CONTACT W/AND (SUSP) EXPOS COVID-19; Translations: [CONTACT W/AND (SUSP) EXPOS COVID-19] Onset: 08-13-2021 Results Test Name Value Interpretation Reference Range Facility Quick Strepon 01-20-2023 S. pyogenes Org specific cx Ql (Throat) Positive [facility] Other Quick Strep [facility] Other Complete Blood Count Auto Di ffon 03-25-2022 Basophils (Bld) [#/Vol] 0.1 10*3/uL Normal 0.0-0.2 [facility] Comment on above: Order Comment: Comme nt Draw at 630 am Result Comment: PERF ORMED BY: [place] [address] PATHOLOGIST RAILWAY EQUIPMENT OPERATOR ART PANG M.D. Performed By: #### C #### [address] Basophils/100 WBC (Bld) 0.8 % Normal . [facility] Comment on above: Order Comment: Comme nt Draw at 630 am Performed By: #### C BC #### [address] Eosinophils (Bld) [#/Vol] 0.1 10*3/uL Normal 0.0-0.45 [facility] Comment on above: Order Comment: Comme nt Draw at 630 am Performed By: #### C BC #### [address] Eosinophils/100 WBC (Bld) 0.8 % Normal . [facility] Comment on above: Order Comment: Comme nt Draw at 630 am Performed By: #### C BC #### [address] Erythrocyte distribution width (RBC) [Ratio] 14.9 % Normal 11.9-15.3 [facility] Comment on above: Order Comment: Comme nt Draw at 630 am Performed By: #### C BC #### [address] Hematocrit (Bld) [Volume fraction] 32.8 % Low 34.0-46.4 [facility] Comment on above: Order Comment: Comme nt Draw at 630 am Performed By: #### C BC #### [address] Hemoglobin (Bld) [Mass/Vol] 11.0 g/dL Low 11.8-15.4 [facility] Comment on above: Order Comment: Comme nt Draw at 630 am Performed By: #### C BC #### [address] Lymphocytes (Bld) [#/Vol] 1.0 10*3/uL Normal 1.00-4.8 [facility] Comment on above: Order Comment: Comme nt Draw at 630 am Performed By: #### C BC #### [address] Lymphocytes/100 WBC (Bld) 11.0 % Normal . [facility] Comment on above: Order Comment: Comme nt Draw at 630 am Performed By: #### C BC #### [facility] [address] MCH (RBC) [Entitic mass] 26.5 pg Normal 24.7-34.3 [facility] Comment on above: Order Comment: Comme nt Draw at 630 am Performed By: #### C BC #### [address] MCV (RBC) [Entitic vol] 79.2 fL Low 80-100 [facility] Comment on above: Order Comment: Comme nt Draw at 630 am Performed By: #### C BC #### [address] Mean Corpuscular HGB Conc 33.5 g/dL Normal 32.0-35.0 [facility] Comment on above: Order Comment: Comme nt Draw at 630 am Performed By: #### C BC #### [address] Monocytes (Bld) [#/Vol] 0.5 10*3/uL Normal 0.0-0.8 [facility] Comment on above: Order Comment: Comme nt Draw at 630 am Performed By: #### C BC #### [address] Monocytes/100 WBC (Bld) 5.6 % Normal . [facility] Comment on above: Order Comment: Comme nt Draw at 630 am Performed By: #### C BC #### [address] Neutrophils (Bld) [#/Vol] 7.1 10*3/uL Normal 1.8-7.7 [facility] Comment on above: Order Comment: Comme nt Draw at 630 am Performed By: #### C BC #### [address] Neutrophils/100 WBC (Bld) 81.8 % Normal . [facility] Comment on above: Order Comment: Comme nt Draw at 630 am Performed By: #### C BC #### [address] Nucleated RBC/100 WBC (Bld) [Ratio] 0.0 % Normal 0-0.5 [facility] Comment on above: Order Comment: Comme nt Draw at 630 am Performed By: #### C BC #### [address] Platelet mean volume (Bld) [Entitic vol] 8.9 fL Normal 6.3-10.7 [facility] Comment on above: Order Comment: Comme nt Draw at 630 am Performed By: #### C BC #### [address] Platelets (Bld) [#/Vol] 234 10*3/uL Normal 150-450 [facility] Comment on above: Order Comment: Comme nt Draw at 630 am Performed By: #### C BC #### [address] RBC (Bld) [#/Vol] 4.14 10*6/uL Normal 3.60-5.00 [facility] Comment on above: Order Comment: Comme nt Draw at 630 am Performed By: #### C BC #### [address] WBC (Bld) [#/Vol] 8.7 10*3/uL Normal 4.5-11.0 [facility] Comment on above: Order Comment: Comme nt Draw at 630 am Performed By: #### C BC #### [address] Hepatitis B Surface Antigeno n 03-25-2022 HBsAg Screen Negative Normal Negative [facility] Comment on above: Result Comment: Perf ormed at: CB - [facility] [address] [id number] Bottling Line Operator: Natan Hamilton PhD, Phone: [phone] PERFORMED BY: [place] [address] PATHOLOGIST RAILWAY EQUIPMENT OPERATOR ART PANG M.D. Performed By: #### S OFIANEG, COVID-19 SAYRA #### [facility] [address] COVID-19 Antigenon 2 COVID-19 Antigen Healthcare Worker?: N Reference Range: Negative Negative results, from patients with symptom onset beyond five days, should be treated as presumptive and confirmation with a molecular assay, if necessary, for patient management, may be performed. Negative results do not rule out COVID-19 and should not be used as the sole basis for treatment or patient management decisions, including infection control decisions. Negative results should be considered in the context of a patient's recent exposures, history and the presence of clinical signs and symptoms consistent with COVID-19. The Sayra SARS Antigen KELLEN does not differentiate between SARS-CoV and SARS-CoV-2. This test was developed and its performance characteristic determined by [employer] and validated at [facility]. This test has not been FDA cleared or approved. This test has been authorized by FDA under an Emergency Use Authorization (EUA). This test has been validated in accordance with the FDA's Guidance Document (Policy for Diagnostics Testing in Laboratories Certified to Perform High Complexity Testing under CLIA prior to Emergency Use Authorization for Coronavirus Disease-2019 during the Public Health Emergency) issued on February 16, 2020. This test is only authorized for the duration of time the declaration that circumstances exist justifying the authorization of the emergency use of in vitro diagnostic tests for detection of SARS-CoV-2 virus and/or diagnosis of COVID-19 infection under section 564(b)(1) of the Act, 21 U.S.C. 360bbb-3(b)(1), unless the authorization is terminated or revoked sooner. SARS-CoV+SARS-CoV- 2 (COVID-19) Ag [Presence] in Respiratory specimen by Rapid immunoassay Negative for SARS Antigen by KELLEN PERFORMED BY: [place] [address] PATHOLOGIST RAILWAY EQUIPMENT OPERATOR ART PANG M.D. [facility] Comment on above: Performed By: #### S OFIANEG, COVID-19 SAYRA #### [address] Complete Blood Count Auto Di ffon 03-24-2022 Basophils (Bld) [#/Vol] 0.1 10*3/uL Normal 0.0-0.2 [facility] Comment on above: Result Comment: PERF ORMED BY: [place] [address] PATHOLOGIST RAILWAY EQUIPMENT OPERATOR ART PANG M.D. Performed By: #### C BC #### [facility] [address] [place] [address] [place] #### RPR W RFX #### [facility] , Basophils/100 WBC (Bld) 1.1 % Normal . [facility] Comment on above: Performed By: #### C BC #### [address] #### RPR W RFX #### [facility] , Eosinophils (Bld) [#/Vol] 0.1 10*3/uL Normal 0.0-0.45 [facility] Comment on above: Performed By: #### C BC #### [address] #### RPR W RFX #### [facility] , Eosinophils/100 WBC (Bld) 1.2 % Normal . [facility] Comment on above: Performed By: #### C BC #### [facility] [address] [place] [address] [place] #### RPR W RFX #### [facility] , Erythrocyte distribution width (RBC) [Ratio] 15.0 % Normal 11.9-15.3 [facility] Comment on above: Performed By: #### C BC #### [facility] [address] [place] [address] [place] #### RPR W RFX #### [facility] , Hematocrit (Bld) [Volume fraction] 31.5 % Low 34.0-46.4 [facility] Comment on above: Performed By: #### C BC #### [address] #### RPR W RFX #### [facility] , Hemoglobin (Bld) [Mass/Vol] 10.7 g/dL Low 11.8-15.4 [facility] Comment on above: Performed By: #### C BC #### [address] #### RPR W RFX #### [facility] , Lymphocytes (Bld) [#/Vol] 1.1 10*3/uL Normal 1.00-4.8 [facility] Comment on above: Performed By: #### C BC #### [address] #### RPR W RFX #### [facility] , Lymphocytes/100 WBC (Bld) 16.0 % Normal . [facility] Comment on above: Performed By: #### C BC #### [address] #### RPR W RFX #### [facility] , MCH (RBC) [Entitic mass] 26.9 pg Normal 24.7-34.3 [facility] Comment on above: Performed By: #### C BC #### [place] [address] [place] #### RPR W RFX #### [facility] , MCV (RBC) [Entitic vol] 79.6 fL Low 80-100 [facility] Comment on above: Performed By: #### C BC #### [place] [address] [place] #### RPR W RFX #### [facility] , Mean Corpuscular HGB Conc 33.9 g/dL Normal 32.0-35.0 [facility] Comment on above: Performed By: #### C BC #### [facility] [address] [place] [address] #### RPR W RFX #### [facility] , Monocytes (Bld) [#/Vol] 0.5 10*3/uL Normal 0.0-0.8 [facility] Comment on above: Performed By: #### C BC #### [facility] [address] [place] [address] [place] #### RPR W RFX #### [facility] , Monocytes/100 WBC (Bld) 7.2 % Normal . [facility] Comment on above: Performed By: #### C BC #### [facility] [address] [place] [address] [place] #### RPR W RFX #### [facility] , Neutrophils (Bld) [#/Vol] 5.3 10*3/uL Normal 1.8-7.7 [facility] Comment on above: Performed By: #### C BC #### [facility] [address] [place] [address] #### RPR W RFX #### [facility] , Neutrophils/100 WBC (Bld) 74.5 % Normal . [facility] Comment on above: Performed By: #### C BC #### [facility] [address] [place] [address] [place] #### RPR W RFX #### [facility] , Nucleated RBC/100 WBC (Bld) [Ratio] 0.0 % Normal 0-0.5 [facility] Comment on above: Performed By: #### C BC #### [facility] [address] [place] [address] [place] #### RPR W RFX #### [facility] , Platelet mean volume (Bld) [Entitic vol] 9.1 fL Normal 6.3-10.7 [facility] Comment on above: Performed By: #### C BC #### [facility] [address] [place] [address] #### RPR W RFX #### [facility] , Platelets (Bld) [#/Vol] 223 10*3/uL Normal 150-450 [facility] Comment on above: Performed By: #### C BC #### [facility] [address] [place] [address] #### RPR W RFX #### [facility] , RBC (Bld) [#/Vol] 3.96 10*6/uL Normal 3.60-5.00 [facility] Comment on above: Performed By: #### C BC #### [facility] [address] [place] [address] #### RPR W RFX #### [facility] , WBC (Bld) [#/Vol] 7.2 10*3/uL Normal 4.5-11.0 [facility] Comment on above: Performed By: #### C BC #### [address] #### RPR W RFX #### [facility] , Dipstick and Microscopicon 0 03-24-2022 Appearance (U) Clear Normal Clear [facility] Comment on above: Order Comment: Name Collection Type:: Clean-Voided Midstream Performed By: #### A DDIBRAHIMAUACHENCHO LAIU OBUDS #### [address] Bacteria,Urine None Seen Normal None Seen [facility] Comment on above: Order Comment: Name Collection Type:: Clean-Voided Midstream Performed By: #### A CHENCHO SRU OBUDS #### [address] Bilirubin,Urine Negative Normal Negative [facility] Comment on above: Order Comment: Name Collection Type:: Clean-Voided Midstream Performed By: #### A DDONUAPLUSCHENCHOU OBUDS #### [facility] [address] [place] [address] Color (U) Yellow Normal Yellow [facility] Comment on above: Order Comment: Name Collection Type:: Clean-Voided Midstream Performed By: #### A DDONUAPLUS, CUU, OBUDS #### [address] Glucose Ql (U) Normal Normal Normal [facility] Comment on above: Order Comment: Name Collection Type:: Clean-Voided Midstream Performed By: #### A DDONUAPLUS, CUU, OBUDS #### [address] Hyaline Casts,Urine 0-8 Normal 0-8 [facility] Comment on above: Order Comment: Name Collection Type:: Clean-Voided Midstream Result Comment: PERF ORMED BY: [place] [address] PATHOLOGIST RAILWAY EQUIPMENT OPERATOR ART PANG M.D. Performed By: #### A DDONUAPLUS, CUU, OBUDS #### [address] Ketones Ql (U) Negative Normal Negative [facility] Comment on above: Order Comment: Name Collection Type:: Clean-Voided Midstream Performed By: #### A DDONUAPLUS, CUU, OBUDS #### [address] Leukocyte esterase Test strip Ql (U) 1+ High Negative [facility] Comment on above: Order Comment: Name Collection Type:: Clean-Voided Midstream Performed By: #### A DDONUAPLUS, CUU, OBUDS #### [place] [address] [place] Nitrite,Urine Negative Normal Negative [facility] Comment on above: Order Comment: Name Collection Type:: Clean-Voided Midstream Performed By: #### A DDONUAPLUS, CUU, OBUDS #### [place] [address] [place] Occult Blood,Urine Negative Normal Negative [facility] Comment on above: Order Comment: Name Collection Type:: Clean-Voided Midstream Result Comment: PERF ORMED BY: [place] [address] PATHOLOGIST RAILWAY EQUIPMENT OPERATOR ART PANG M.D. Performed By: #### A DDONUAPLUS, CUU, OBUDS #### [address] pH (U) 7.0 [pH] Normal 5.0-9.0 [facility] Comment on above: Order Comment: Name Collection Type:: Clean-Voided Midstream Performed By: #### A DDONUAPLUS, CUU, OBUDS #### [address] Protein,Urine Negative Normal Negative [facility] Comment on above: Order Comment: Name Collection Type:: Clean-Voided Midstream Performed By: #### A DDONUAPLUS, CUU, OBUDS #### [address] RBC,Urine None Seen Normal 0-4 [facility] Comment on above: Order Comment: Name Collection Type:: Clean-Voided Midstream Performed By: #### A DDONUAPLUS, CUU, OBUDS #### [address] Specificy Lyle,Urine 1.012 Normal 1.001-1.030 [facility] Comment on above: Order Comment: Name Collection Type:: Clean-Voided Midstream Performed By: #### A DDONUAPLUS, CUU, OBUDS #### [address] Squamous Epithelial Cell,Urine 5-9 High 0-2 [facility] Comment on above: Order Comment: Name Collection Type:: Clean-Voided Midstream Performed By: #### A DDONUAPLUS, CUU, OBUDS #### [address] Urobilinogen,Urine Normal Normal Normal [facility] Comment on above: Order Comment: Name Collection Type:: Clean-Voided Midstream Performed By: #### A DDONUAPLUS, CUU, OBUDS #### [facility] [address] [place] [address] [place] WBC,Urine 10-19 High 0-4 [facility] Comment on above: Order Comment: Name Collection Type:: Clean-Voided Midstream Performed By: #### A DDONUAPLUS, CUU, OBUDS #### [facility] [address] [place] [address] OB Urine Drug Screen (NO THC )on 03-24-2022 Amphetamine Screen,Urine Negative Normal Negative [facility] Comment on above: Performed By: #### A DDONUAPLUS, CUU, OBUDS #### [facility] [address] [place] [address] [place] Barbiturate Screen,Urine Negative Normal Negative [facility] Comment on above: Performed By: #### A DDONUAPLUS, CUU, OBUDS #### [facility] [address] [place] [address] [place] Benzodiazepines Screen,Urine Negative Normal Negative [facility] Comment on above: Performed By: #### A DDONUAPLUS, CUU, OBUDS #### [facility] [address] [place] [address] [place] Cocaine Screen,Urine Negative Normal Negative [facility] Comment on above: Performed By: #### A DDONUAPLUS, CUU, OBUDS #### [facility] [address] [place] [address] [place] Opiate Screen,Urine Negative Normal Negative [facility] Comment on above: Performed By: #### A DDONUAPLUS, CUU, OBUDS #### [facility] [address] [place] [address] [place] Phencyclidine Screen, Urine Negative Normal Negative [facility] Comment on above: Result Comment: Thes e are unconfirmed results and should not be used for legal purposes. Drug Cut-Off Concentration: AMPH 1000 ng/mL SAM 200 ng/mL YONAS 200 ng/mL COCM 300 ng/mL OP 300 ng/mL PCP 25 ng/mL PERFORMED BY: [place] [address] PATHOLOGIST RAILWAY EQUIPMENT OPERATOR ART PANG M.D. Performed By: #### A REMBERTO, FANG HAYS #### [address] RPR w/rfx to Quant TP Abson 03-24-2022 RPR, Rfx Quant RPR Non-Reactive Normal Non Reactive [facility] Comment on above: Result Comment: Perf ormed at: - [facility] [place] [id number] Bottling Line Operator: Natan Hamilton PhD, Phone: [phone] PERFORMED BY: [place] [address] PATHOLOGIST RAILWAY EQUIPMENT OPERATOR ART PANG M.D. Performed By: #### C BC #### [address] #### RPR W RFX #### [facility] , Sayra Ag Negativeon 03-24-20 22 Sayra Ag Negative Negative Normal Negative [facility] Comment on above: Result Comment: This is a duplicate Sayra SARS Antigen (KELLEN) result to be used for statistical tracking purpose only. PERFORMED BY: [place] [address] PATHOLOGIST RAILWAY EQUIPMENT OPERATOR ART PANG M.D. Performed By: #### S MARTIN COVID-19 SAYRA #### [address] Urine Cultureon 03-24-2022 Bacteria identified Cx Nom (U) >100,000 colonies/ml mixed bacterial skin contaminants 2 Days PERFORMED BY: [place] [address] PATHOLOGIST RAILWAY EQUIPMENT OPERATOR ART PANG M.D. Normal [facility] Comment on above: Performed By: #### S OFIANEG, COVID-19 SAYRA #### [facility] [address] [place] [address] [place] Strep B Cultureon 02-25-2022 Strep B Culture Reason for Exam 35 weeks gestation of ;Antenata l screening for stre Vaginal/Rectal Comment vaginal, ecc, rectal Reason for Exam: 35 weeks gestation of ;Antenata l screening for stre : Vaginal/Rectal Comment: vaginal, ecc, rectal Strep B Only Cult PEND ORGANISM: Strep. agalactiae Grp B (O:B) PERFORMED BY: [place] [address] PATHOLOGIST RAILWAY EQUIPMENT OPERATOR ART PANG M.D. Normal [facility] Comment on above: Performed By: #### C USTB #### [address] Glucose,1 Hour PP 50gm Doseo n 12-28-2021 Glucose [Mass/Vol] 128 mg/dL Normal 60-140 [facility] Comment on above: Order Comment: ROSHNI NT FINISHED 50 GRAMS OF GLUCOLA AT 0912 Result Comment: PERF ORMED BY: [place] [address] PATHOLOGIST RAILWAY EQUIPMENT OPERATOR ART PANG M.D. Performed By: #### H H, [id number] #### [address] Hemoglobin and Hematocriton 12-28-2021 Hematocrit (Bld) [Volume fraction] 32.6 % Low 34.0-46.4 [facility] Comment on above: Result Comment: PERF ORMED BY: [place] [address] PATHOLOGIST RAILWAY EQUIPMENT OPERATOR ART PANG M.D. Performed By: #### H H, [id number] #### [address] Hemoglobin (Bld) [Mass/Vol] 11.1 g/dL Low 11.8-15.4 [facility] Comment on above: Performed By: #### H H, [id number] #### [address] [place] [address] [facility] Covid-19 PCR (CVDTB)on 07-18 SARS-CoV-2 (COVID-19) RNA BRIDGER+probe Ql (Unsp spec) Detected Critically abnormal NOT DETECTED [facility] Comment on above: Result Comment: This test is not yet approved or cleared by the [place] FDA. When there are no FDA-approved or cleared tests available, and other criteria are met, FDA can make tests available under an emergency access mechanism called an Emergency Use Authorization (EUA). The EUA for this test is supported by the Blueberry Grower of Health and Human Service's (HHS's) declaration that circumstances exist to justify the emergency use of in vitro diagnostics for the detection and/or diagnosis of the virus that causes COVID-19. This EUA will remain in effect (meaning this test can be used) for the duration of the COVID-19 declaration justifying emergency of IVDs, unless it is terminated or revoked by FDA (after which the test may no longer be used). Performed By: #### C VDTB #### [facility] [address] [address] [address] Mj Hubbard Covid-19 PCR (CVDTB)on 07-18 SARS-CoV-2 (COVID-19) RNA BRIDGER+probe Ql (Unsp spec) Not detected Normal NOT DETECTED [facility] Comment on above: Result Comment: This test is not yet approved or cleared by the [place] FDA. When there are no FDA-approved or cleared tests available, and other criteria are met, FDA can make tests available under an emergency access mechanism called an Emergency Use Authorization (EUA). The EUA for this test is supported by the Blueberry Grower of Health and Human Service's (HHS's) declaration that circumstances exist to justify the emergency use of in vitro diagnostics for the detection and/or diagnosis of the virus that causes COVID-19. This EUA will remain in effect (meaning this test can be used) for the duration of the COVID-19 declaration justifying emergency of IVDs, unless it is terminated or revoked by FDA (after which the test may no longer be used). When diagnostic testing is negative, the possibility of a false negative should be considered in the context of a patient's recent exposures and the presence of clinical signs and symptoms consistent with SARS-CoV-2. Performed By: #### [facility] #### [facility] [address] [place] [address] Dr. Mj Hubbard Vital Signs Date Time Vital Sign Value Performing Clinician Facility 01-20-2023 09:15-0500 Body height 160.02 cm Serenity Horowitz Other [facility] Other 01-20-2023 09:15-0500 Body mass index (BMI) [Ratio] 19.84 kg/m2 Serenity Horowitz Other [facility] Other 01-20-2023 09:15-0500 Body temperature 99 [degF] Serenity Horowitz Other [facility] Other 01-20-2023 09:15-0500 Body weight 50.8 kg Serenity Horowitz Other [facility] Other 01-20-2023 09:15-0500 Respiratory rate 18 /min Serenity Horowitz Other [facility] Other 01-20-2023 09:15-0500 SaO2% (BldA) [Mass fraction] 98 % Serenity Horowitz Other [facility] Other Encounters Encounter Date Encounter Type Care Provider Facility Start: 11-24-2023 End: 11-24-2023 ambulatory BENJIE FRANSISCO Not Available Start: 10-19-2023 End: 10-19-2023 ambulatory BENJIE FRANSISCO Not Available Start: 10-12-2023 End: 10-12-2023 ambulatory BENJIE FRANSISCO Not Available Start: 01-20-2023 End: 01-20-2023 ambulatory Serenity Horowitz Other [facility] Other Start: 01-20-2023 Office outpatient ne w 30 minutes Serenity Horowitz [facility] Start: 11-25-2021 End: 11-26-2021 ambulatory SHANTEL CHANG Facility:[facility] Start: 08-13-2021 End: 08-13-2021 ambulatory SHANTEL CHANG Facility:[facility] Start: 08-06-2021 End: 08-06-[address] DOCTOR MINER Facility:[facility] Payers Date Payer Category Payer Unknown [id number] [id number] 1995 Unknown [id number] 2.16.84 [id number] 1995 Unknown [id number] 2.16.84 [id number] 1996 Unknown [id number] 2.16.84 [id number] 1996 Unknown [id number] 2.16.84 [id number] 1996 Unknown [id number] 1996 Unknown [id number] 1959 Unknown [id number] Social History Date Type Detail Facility Unknown if ever smoked [facility] Other Sex Assigned At Sex Assigned At Bir th [facility] Other Evaluation note 01-20-2023 Note Date & Type Note Facility 01-20-2023 Evaluation note Encounter Date Diagnosis Assessment Notes Jan, Nasal congestion (ICD-10 - R09.81) Jan, Strep pharyngitis (ICD-10 - J02.0) Strep throat material was printed Drink plenty fluids, get plenty of rest. Take the amoxicillin and prednisone as prescribed until gone. Take Tylenol or Motrin as needed for aches pains or fevers. Off work today and tomorrow. Follow-up with your family physician if no improvement in 2 to 3 days. [facility] Other Summary Purpose Family History No Family History Records FoundNo Family History Records FoundNo Family History Records Found Advance Directives No Advanced Directives Records FoundNo Advanced Directives Records FoundNo Advanced Directives Records Found Additional Source Comments INFORMATION SOURCE (unrecogn ized section and content) DATE CREATED AUTHOR 12/24/2021 [facility] DATE CREATED AUTHOR AUTHOR'S ORGANIZ ATION 04/22/2022 [facility] DATE CREATED AUTHOR AUTHOR'S ORGANIZ ATION 11/25/2023 [facility] EPIC REASON FOR VISIT (unrecogniz ed section and content) ear ache sore throat h/a FOR RECORDS PERTAINING TO PATIENTS WHO ARE OR HAVE BEEN ENROLLED IN A CHEMICAL DEPENDENCY/SUBSTANCEABUSE PROGRAM, SOME INFORMATION MAY BE OMITTED. This clinical summary was aggregated from multiple sources. Caution should be exercised in using it in the provision of clinical care. This summary normalizes information from multiple sources, and as a consequence, information in this document may materially change the coding, format and clinical context of patient data. In addition, data may be omitted in some cases. CLINICAL DECISIONS SHOULD BE BASED ON THE PRIMARY CLINICAL RECORDS. [facility]. provides no warranty or guarantee of the accuracy or completeness of information in this document.
[2023-12-18 09:17] LABS: HCG Quantitative <1 mIU/mL
[2023-12-18] MEDS: LACTATED RINGER'S SOLUTION 1,000 ML 50 ML IV (09:17)
--- NOTE | 2023-12-18 12:18 | P.ON_ITS ---
Brief Operative Note Date of procedure: 12/18/23 Pre-op diagnosis: desires permanent sterilization, multiparity Post-op diagnosis: same as pre-op Procedure: NAME OF PROCEDURE: robotic assisted bilateral laparoscopic salpingectomy PROCEDURE: The patient was taken back to the Operating Room where she was given general anesthesia without difficulty. She was then prepped and draped in the normal sterile fashion after being placed in a dorsal lithotomy position. A wet sponge stick was placed into the patient's vagina. Attention was then turned to the patient's abdomen, where a scalpel was used to make a small infraumbilical incision. The S retractors were then used to dissect the underlying layers until the fascia could be seen. The fascia was then grasped with Alireza clamps and tented up. A knife was then used to make a small incision to the fascia. The muscle was identified, at that time two sutures of #0 Vicryl on a GI needle was then used and placed through the fascia. the peritoneum was then identified and entered bluntly. The 10-4 Pastor was then placed into the patient's abdomen. This was confirmed with direct visualization of the bowel, using the laparoscope. The patient's abdomen was then insufflated using approximately 4 liters of CO2 gas. Survey of the patient's abdomen demonstrated ovaries were normal in appearance as well as both tubes and uterus. A second and third rt and lt lateral robotic ports which were 8 mm in size, was then placed after the skin incision was made under direct visualization . the robotic arms were engaged. The patient's tube on the patient's right side was identified and tented up using a grasper, the ligasure apparatus was then used to come across the mesosalpingx from the fimbriated end to the insertion site at the uterus, the tube was then amputated and removed in its entirety. This was done on the contralateral side. The tubes were the removed from the patients abdomen. Excellent hemostasis was noted. The lateral ports were then moved under direct visualization with excellent hemostasis. All instruments were removed from the patient's abdomen. The fascia was closed using the #0 Vicryl on GI needle. The skin was closed using 4-0 Vicryl subcuticularly. All instruments were removed from the patient's vagina as well. The patient was taken out of the dorsal lithotomy position and placed in the supine position and taken to recovery in stable condition. Sponge, lap and needle counts were correct x2. Anesthesia: GOMEZA Surgeon: Isaias Faulkner Naphthalene Still Operator: Nani Roque Estimated blood loss (mL): 5 Pathology: other (tubes) Condition: stable Disposition: PACU Urinary Catheter Management Urinary Catheter Management Urethral: Cath placed during this visit: no
[2023-12-18] MEDS: LACTATED RINGER'S SOLUTION 1,000 ML 150 ML IV (12:25)
[2023-12-18] MEDS: HYDROCODONE/ACET 5-325 MG TABLET 1 TAB PO (13:31)
--- NOTE | 2024-01-20 15:52 | PC.NURSE ---
Rowena and 3 mo Isaac arrive for support. Rowena was able to take Isaac to [facility]RB[facility] ANTHROPOLOGIST for evaluation. Mom reports given exercises for tongue and buccal ties as well as ones to help with hyperactive gag reflex. States was also able to have baby seen by Dr Polk Chiropractor. Has tounge tie releas scheduled for 01/22/[address] Jimenez in [place], pediatric dentist. Mom notes that baby is not so tight when trying to latch and feed. Baby to scales and weight 12-2.5 today. Reviewed expectations after tongue release and will continue to follow other providers and return 01/26/2024 for support. Aware the process may be longer than quick fix, is dedicated to function for baby Isaac. leaves ambulatory with all questions answered.
== END 2023-12-18 14:26 | disposition home or self-care (01) ==
PROVIDERS: PCP Family Medicine; Visit Provider Obstetrics & Gynecology
PROC: (CPT 840; principal; 2023-12-18 10:15)
DX: Z30.2 Encounter for sterilization (principal); J45.909 Unspecified asthma, uncomplicated
CPT/HCPCS: 58661; 36415; 84702; 85025; 88302; J1100; J1885; J2250; J2371; J2405; J2704; J3010

== ENCOUNTER 2024-01-20 08:30 | Outpatient (OUT) | payer OTHER, SELFPAY ==
--- NOTE | 2024-01-21 09:43 | PC.NURSE ---
SANDIP NOWAK Female : 1995 [facility] [id number] 01/20/24 15:52 - Nurse Note by Kayley Owens : 1995 Patient Age: 28 Sandip and 3 mo Isaac arrive for support. Sandip was able to take Isaac to [facility] HYDROSTATIC TESTER for evaluation. Mom reports given exercises for tongue and buccal ties as well as ones to help with hyperactive gag reflex. States was also able to have baby seen by Dr Polk Chiropractor. Has tounge tie releas scheduled for 01/22/[address] Jimenez in [place], pediatric dentist. Mom notes that baby is not so tight when trying to latch and feed. Baby to scales and weight 12-2.5 today. Reviewed expectations after tongue release and will continue to follow other providers and return 01/26/2024 for support. Aware the process may be longer than quick fix, is dedicated to function for baby Isaac. leaves ambulatory with all questions answered. Initialized on 01/20/24 15:52 - END OF NOTE
== END 2024-01-20 08:31 | disposition home or self-care (01) ==
LOC: FBCO 01-21 08:36
PROVIDERS: PCP Family Medicine; Visit Provider Obstetrics & Gynecology
DX: Z39.1 Encounter for care and examination of lactating mother (principal)

== ENCOUNTER 2024-02-01 08:53 | Outpatient (OUT) | payer OTHER, SELFPAY ==
--- OUTSIDE RECORDS SUMMARY | 2024-02-01 09:08 | XMS_ITS | CCD ---
Author Name Unknown Address [address] [place] [address] Organization [facility] Care Team Providers Care Custom Framing Specialist Name Role Phone SHANTEL CHANG Primary Care Unavailable SAM TY Attending Unavailable SAM TY Consulting Unavailable SAM TY Admitting Unavailable SHANTEL CHANG Primary Care Unavailable FREEDOM, DR DOMINGUEZ Attending Unavailable FREEDOM, DR DOMINGUEZ Consulting Unavailable FREEDOM, DR DOMINGUEZ Admitting Unavailable MISC, DR REMY Admitting Unavailable SHANTEL CHANG Primary Care Unavailable MISC, DR REMY Attending Unavailable MISC, DR REMY Consulting Unavailable Serenity Horowitz Unavailable BENJIE FAULKNER Attending Unavailable BENJIE FAULKNER Attending Unavailable BENJIE FAULKNER Attending Unavailable Odalys Ponce MD Primary Care Provider Benjie Faulkner Attending Provider Benjie Faulkner Attending Unavailable Benjie Faulkner Admitting Unavailable Medications Current Medications Medication Drug Class(es) Dates Sig (Normalized) Sig (Original) 200 actuat albuterol 0.09 mg/actuat dry powder inhaler (1 source) beta2-Adrenergic Agonist Start: 08-24-2023 End: 08-23-2024 take 2 puff(s) by inhalation every four hours for wheezing albuterol (ProAir RespiClick) 90 mcg/act breath-activated inhaler Indications: Wheezing Inhale 2 puffs every 4 (four) hours if needed for wheezing. 1 each 08/24/2023 08/23/2024 Active amoxicillin 500 mg oral capsule (1 source) Penicillin-class Antibacterial Start: 01-20-2023 take 1 capsule by mouth every eight hours Amoxicillin 500 MG 1 capsule Orally three times a day for 10 day(s) Jan, Active ibuprofen 600 mg oral tablet (2 sources) Nonsteroidal Anti-inflammatory Drug Start: 06-01-2018 Ibuprofen Active 600 MG PO Every 6 hours March 24, 2022 11:00pm do not exceed 4 doses in a 24 hour period Pnv Cmb#95-Ferrous Fumarate-Fa () 28 mg iron- 800 mcg Tablet (1 source) Start: 04-18-2018 take 1 tablet by mouth once daily Pnv Cmb#95-Ferrous Fumarate-Fa () 28 mg iron- 800 mcg Tablet Active 1 TAB PO Daily April 17, 2018 11:00pm predniSONE 20 mg oral tablet (1 source) Start: 01-20-2023 take 1 tablet by mouth every twelve hours predniSONE 20 MG 1 tablet Orally 2 times a day for 5 day(s) Jan, Active 27-1 MG tablet (1 source) Start: 09-16-2023 take 1 tablet by mouth once daily in the morning 27-1 MG tablet Indications: Iron deficiency TAKE 1 TABLET BY MOUTH EVERY DAY IN THE MORNING 90 tablet 1 09/16/2023 Active Completed/Discontinued Medications Medication Drug Class(es) Dates Sig (Normalized) Sig (Original) ferrous sulfate 325 mg oral tablet (1 source) Start: 06-01-2018 End: 03-25-2022 take 325 mg by mouth twice daily Ferrous Sulfate Discontinued 325 MG PO Twice daily 60 May 31, 2018 11:00pm March 25, 2022 7:22am traMADol hydrochloride 50 mg oral tablet (1 source) Opioid Agonist Start: 06-01-2018 End: 03-25-2022 take 50 mg by mouth every six hours Tramadol Discontinued 50 MG PO Q6H 10 May 31, 2018 11:00pm March 25, 2022 7:22am Problems Active Problems Problem Classification Problem Date Documented Date Episodic/Chronic Asthma (1 source) Asthma; Translations: [Unspecified asthma, uncomplicated] Onset: 06-02-2023 06-02-2023 Chronic E Codes: Cut/pierceb (1 source) Contact with other sharp object(s), not elsewhere classified, initial encounter; Translations: [CNTC OTH SHRP OB NOT ELSW CLASS INI] Onset: 11-27-2021 Episodic Immunizations and screening for infectious disease (1 source) Encounter for immunization; Translations: [ENCOUNTER FOR IMMUNIZATION] Onset: 11-27-2021 Episodic Open wounds of extremities (4 sources) Laceration without foreign body of left ring finger without damage to nail, initial encounter; Translations: [LAC NO FB LT RF NO DMG NAIL INITIAL] Onset: 11-25-2021 Episodic Other female genital disorders (1 source) H/O: normal delivery; Translations: [Status post normal vaginal delivery] 10-28-2023 Episodic Other and delivery including normal (1 source) ; Translations: [Encounter for supervision of normal , unspecified, unspecified trimester] 10-28-2023 Episodic Other upper respiratory disease (1 source) [...] source) Cough; Translations: [COUGH] Onset: 08-19-2021 Episodic Other non-traumatic joint disorders (1 source) Instability of joint of right ankle; Translations: [Other instability, right ankle] Onset: 06-02-2023 06-02-2023 Episodic Other non-traumatic joint disorders (1 source) Acute ankle pain; Translations: [Pain in right ankle and joints of right foot] Onset: 06-02-2023 06-02-2023 Episodic Sprains and strains (1 source) Sprain of talofibular ligament of right ankle; Translations: [Sprain of other ligament of right ankle, initial encounter] Onset: 06-02-2023 06-02-2023 Episodic Unclassified (1 source) CONTACT W/AND (SUSP) EXPOS COVID-19; Translations: [CONTACT W/AND (SUSP) EXPOS COVID-19] Onset: 08-13-2021 Results Test Name Value Interpretation Reference Range Facility ALL CBC WITH AUTO DIFFon BASOPHILS ABSOLUTE AUTO 0.0 [facility] Basophils/100 WBC (Bld) 0.8 % 0.2 - 2.0 % [facility] Eosinophils/100 WBC (Bld) 2.2 % 0.9 - 7.0 % [facility] Erythrocyte distribution width (RBC) [Ratio] 16.4 % High 11.0 - 15.0 % [facility] Hematocrit (Bld) [Volume fraction] 37.5 % 36.0 - 48.0 % [facility] Hemoglobin (Bld) [Mass/Vol] 11.5 g/dL Low 12.0 - 16.0 g/dL [facility] IMMATURE GRANULOCYTES ABS AUTO 0.01 [facility] Immature granulocytes/100 WBC (Bld) 0.2 % 0.0 - 0.5 % [facility] Interpretation and review of laboratory results Abnormal [facility] LYMPHOCYTES ABSOLUTE AUTO 1.3 [facility] Lymphocytes/100 WBC (Bld) 25.6 % 20.5 - 60.0 % [facility] MCH (RBC) [Entitic mass] 26.4 pg Low 26.7 - 34.0 pg [facility] MCHC (RBC) [Mass/Vol] 30.7 g/dL 29.9 - 35.2 g/dL [facility] MCV (RBC) [Entitic vol] 86.0 fL 81.0 - 99.0 fL [facility] Healthcare MONOCYTES ABSOLUTE AUTO 0.6 [facility] Healthcare Monocytes/100 WBC (Bld) 11.3 % 1.7 - 12.0 % [facility] Healthcare NEUTROPHILS ABSOLUTE AUTO 3.0 [facility] Neutrophils/100 WBC (Bld) 59.9 % 43.0 - 75.0 % [facility] Platelet mean volume (Bld) [Entitic vol] 9.5 fL 9.5 - 13.5 fL [facility] Healthcare TBH EO # 0.1 [facility] PLT 261 [facility] RBC 4.36 [facility] WBC 5.0 [facility] Shayne 12-18-2023 L Specimen: [id number] Received: 12/21/23 Status: NIC Shields Num: [id number] Spec Type: Surgical Subm Dr: Benjie Faulkner Tissues: A Fallopian Tube - Sterilization (DORIS FT) Procedures: HE/2, Gross/Micro L2 Age/ Patient Sex Location Account Attending Physician Rowena Bernstein 28/F LABELL [id number] Benjie Faulkner SPEC NUM: [id number] RECD: 12/21/23 STATUS: NIC SHIELDS NUM: [id number] SURENDRA: 12/18/231204 SUBM DR: Benjie Faulkner ENTERED: 12/21/23-[address]: Luther,[facility] SPEC TYPE: Surgical DEPT: SHEKHAR PRYOR ORDERED: HE/2, Gross/Micro L2 ORDERED: HE/2, Gross/Micro L2 Pathological Diagnosis Bilateral fallopian tubes, resection: No significant abnormality. Clinical Information Request for sterilization Gross Description Received in formalin labeled with the patient's name, date of and bilateral fallopian tubes are two purple-genao fimbriated fallopian tubes measuring 4.7 x 0.5 x 0.5 cm (inked black) and 4.5 x 0.5 x 0.3 cm. Each has an unremarkable, pinpoint lumen on cut section. Video Game Developer sections are submitted in two cassettes labeled A1-A2. Microscopic Description Two H E slides reviewed. The microscopic examination confirms the diagnosis. CPT Codes 99886 -- -- Specimen: [id number] Received: 12/21/23-1256 Status: NIC Shields Num: [id number] Spec Type: Surgical Subm Dr: Benjie Faulkner Tissues: A Fallopian Tube - Sterilization (DORIS FT) Procedures: HE/Rehana, Simone/Akira L2 -- Patient: Rowena Bernstein Val [id number] (Continued) -- Signed (signatu re on file) Jonny Chappell MD 12/22/23 [address] [facility] Quick Strepon 01-20-2023 S. pyogenes Org specific cx Ql (Throat) Positive [facility] Other Quick Strep [facility] Other Covid-19 PCR (CVDTB)on 07-18 SARS-CoV-2 (COVID-19) RNA BRIDGER+probe Ql (Unsp spec) Detected Critically abnormal NOT DETECTED [facility] Comment on above: Result Comment: This test is not yet approved or cleared by the [place] FDA. When there are no FDA-approved or cleared tests available, and other criteria are met, FDA can make tests available under an emergency access mechanism called an Emergency Use Authorization (EUA). The EUA for this test is supported by the [place] of Health and Human Service's (HHS's) declaration [...] longer be used). Performed By: #### C VDTBH #### [facility] [address] [place] [address] Dr. Mj Hubbard Covid-19 PCR ([facility])on 07-18 SARS-CoV-2 (COVID-19) RNA BRIDGER+probe Ql (Unsp spec) Not detected Normal NOT DETECTED [facility] Comment on above: Result Comment: This test is not yet approved or cleared by the [place] FDA. When there are no FDA-approved or cleared tests available, and other criteria are met, FDA can make tests available under an emergency access mechanism called an Emergency Use Authorization (EUA). The EUA for this test is supported by the [place] of Health and Human Service's (HHS's) declaration [...] consistent with SARS-CoV-2. Performed By: #### C VDTB #### [facility] [address] [place] [id number] [address] Mj Hubbard Vital Signs Date Time Vital Sign Value Performing Clinician Facility 01-20-2023 09:15-0500 Body height 160.02 cm Serenity Horowitz Other [facility] Other 01-20-2023 09:15-0500 Body mass index (BMI) [Ratio] 19.84 kg/m2 Serenity Horowitz Other [facility] Other 01-20-2023 09:15-0500 Body temperature 99 [degF] Serenity Horowitz Other [facility] Other 01-20-2023 09:15-0500 Body weight 50.8 kg Serenity Horowitz Other [facility] Other 01-20-2023 09:15-0500 Respiratory rate 18 /min Serenity Horowitz Other [facility] Other 01-20-2023 09:15-0500 SaO2% (BldA) [Mass fraction] 98 % Serenity Horowitz Other [facility] Other Encounters Encounter Date Encounter Type Care Provider Facility Start: 12-18-2023 End: 12-18-2023 ambulatory Benjie Lucie Facility:[facility] Start: 12-18-2023 [facility] Result Encounter Benjie Lucie DO Work Phone: [facility] Unsolicited Start: 12-18-2023 [facility] Result Encounter Benjie Lucie DO Work Phone: [facility] Unsolicited Start: 12-18-2023 End: 12-18-2023 ambulatory Benjie Lucie Work Phone: [facility] Work Phone: Start: 12-18-2023 End: 12-18-2023 Departed Referred Benjie Lucie Work Phone: [facility] Start: 11-24-2023 End: 11-24-2023 ambulatory BENJIE LUCIE Not Available Start: 10-19-2023 End: 10-19-2023 ambulatory BENJIE LUCIE Not Available Start: 10-12-2023 End: 10-12-2023 ambulatory BENJIE LUCIE Not Available Start: 01-20-2023 End: 01-20-2023 ambulatory Serenity Lor Other [facility] Other Start: 01-20-2023 Office outpatient ne w 30 minutes Serenity Lor [facility] Start: 11-25-2021 End: 11-26-2021 ambulatory SHANTEL CHANG Facility:[facility] Start: 08-13-2021 End: 08-13-2021 ambulatory SHANTEL CHANG Facility:[facility] Start: 08-06-2021 End: 08-06-[address] DOCTOR MINER Facility:[facility] Procedures Date Procedure Procedure Detail Performing Clinician Start: 12-18-2023 ALL CBC WITH AUTO DIFF Generic External Data Provider Plan of Treatment Date Care Activity Detail Author Start: 07-17-2023 Influenza vaccination Influenza Vacc ine (#1) [facility] Immunizations Immunization Date Immunization Notes Care Provider Fa cility 11-26-2021 diphtheria, tetanus toxoids and pertussis vaccine Benjie Lucie DO Work Phone: [facility] 12-01-2017 influenza, injectabl e, madin alda canine kidney, preservative free Benjie Lucie DO Work Phone: [facility] 12-01-2017 influenza virus vacc ine, unspecified formulation Benjie Lucie DO Work Phone: [facility] 07-29-2017 influenza, injectabl e, quadrivalent, contains preservative Benjie Lucie DO Work Phone: [facility] 11-02-2013 human papilloma viru s vaccine, quadrivalent Benjie Lucie DO Work Phone: [facility] 11-02-2013 influenza, seasonal, injectable Benjie Lucie DO Work Phone: [facility] 03-02-2013 human papilloma viru s vaccine, quadrivalent Benjie Lucie DO Work Phone: [facility] 03-02-2013 tetanus toxoid, redu bridget diphtheria toxoid, and acellular pertussis vaccine, adsorbed Benjie Lucie DO Work Phone: [facility] 12-15-2012 human papilloma viru s vaccine, quadrivalent Benjie Lucie DO Work Phone: [facility] 09-02-2012 influenza virus vacc ine, live, attenuated, for intranasal use Benjie Lucie DO Work Phone: [facility] 03-01-2001 diphtheria, tetanus toxoids and acellular pertussis vaccine, unspecified formulation Benjie Lucie DO Work Phone: [facility] 03-01-2001 measles, mumps and rubella virus vaccine Benjie Lucie DO Work Phone: [facility] 03-01-2001 poliovirus vaccine, inactivated Benjie Lucie DO Work Phone: [facility] 08-04-1997 diphtheria, tetanus toxoids and acellular pertussis vaccine, unspecified formulation Benjie Lucie DO Work Phone: [facility] 08-04-1997 haemophilus influenz ae type b vaccine, conjugate unspecified formulation Benjie Lucie DO Work Phone: [facility] 08-04-1997 measles, mumps and rubella virus vaccine Benjie Lucie DO Work Phone: [facility] 02-01-1997 DTP-Haemophilus influenzae type b conjugate vaccine Benjie Lucie DO Work Phone: [facility] 02-01-1997 hepatitis B vaccine, pediatric or pediatric/adolescent dosage Benjie Lucie DO Work Phone: [facility] 02-01-1997 trivalent poliovirus vaccine, live, oral Benjie Lucie DO Work Phone: [facility] 1996 DTP-Haemophilus influenzae type b conjugate vaccine Benjie Lucie DO Work Phone: [facility] 1996 trivalent poliovirus vaccine, live, oral Benjie Lucie DO Work Phone: [facility] 1996 DTP-Haemophilus influenzae type b conjugate vaccine Benjie Lucie DO Work Phone: [facility] 1996 hepatitis B vaccine, pediatric or pediatric/adolescent dosage Benjie Lucie DO Work Phone: [facility] 1996 trivalent poliovirus vaccine, live, oral Benjie Lucie DO Work Phone: [facility] 1996 hepatitis B vaccine, pediatric or pediatric/adolescent dosage Benjie Lucie DO Work Phone: [facility] Healthcare Payers Date Payer Category Payer Self-pay [id number] 2022 Unknown [id number] 1996 Unknown [id number] 1996 Unknown [id number] 1996 Unknown [id number] 1996 Unknown [id number] 1259 1996 Unknown [id number] 1259 1996 Unknown [id number] [id number] 1959 Unknown [id number] Medicaid [id number] Private Health Insurance [employer] [id number] Unknown [employer] [id number] Effective for all dates [phone] [address] [address] [place] [address] [id number] Unknown [id number] Social History Date Type Detail Facility Unknown if ever smoked [facility] Other Start: 06-02-2023 Sex Assigned At N [facility] Other Start: 03-24-2022 End: 04-27-2023 Tobacco smoking status NHIS Never smoked tobacco [facility] Start: 04-27-2023 Tobacco use and exposure Smokeless tobacco non-user [facility] Start: 11-24-2023 Alcohol intake Lifetime non-d harris (finding) [facility] Start: 06-02-2023 History of Social function [facility] Start: 04-27-2023 Education [facility] Start: 04-27-2023 Alcohol Comment Caffeine 1 cup qd coffee, tea, soda [facility] Start: 1995 Sex Assigned At Not on file [facility] Start: 1995 Sex Assigned At Female F [facility] Evaluation note 01-20-2023 Note Date & Type [...] no improvement in 2 to 3 days. [facility] Other Evaluation note Note Date & Type Note Facility Evaluation note No assessment information availa [facility] Work Phone: Summary Purpose Family History No Family History Records Found Relationship Condition Age at Onset Recorded Date/T kitty Not Specified Diabetes mellitus Unknown Advance Directives No Advanced Directives Records Found Advance Directive Response Recorded Date/ Time Advance Directives No March 20, 2018 6:44am Additional Source Comments INFORMATION SOURCE (unrecogn ized section and content) DATE CREATED AUTHOR 12/24/2021 [facility] DATE CREATED AUTHOR AUTHOR'S ORGANIZ ATION 11/25/2023 [facility] EPIC DATE CREATED AUTHOR AUTHOR'S ORGANIZ ATION 12/23/2023 [facility] REASON FOR VISIT (unrecogniz ed section and content) ear ache sore throat h/a Care Teams (unrecognized sec tion and content) Custom Framing Specialist Relationship Specialty Start Date End Date Odalys Ponce MD [address] [place] [address] PCP - General Family Medicine 04/29/23 Team Status: Inactive Member Role Status Dates Benjei Faulkner Attending Provider Active Start: 2023 End: December 18, 2023 Goals (unrecognized section and content) Goals may be documented in a n alternate section FOR RECORDS PERTAINING TO PATIENTS WHO ARE [...] BE BASED ON THE PRIMARY CLINICAL RECORDS. [employer] provides no warranty or guarantee of the accuracy or completeness of information in this document.
--- NOTE | 2024-02-01 15:04 | PC.NURSE ---
Rowena and 3mo Isaac arrive for continued support. Isaac has been following with Ekaterina Welsh, SUBASSEMBLY ASSEMBLER for exercises due to strong gag reflex, suspected tongue tie, and other suck related difficulties. Has been treated by Dr Lobo, Chiropractor for noted right head tilt and latch difficulties as well as treatment for tongue tie as evaluated per Dr Jimenez, pediatric dentist in [place]. Tongue revision last week per mom. States has been doing stretch exercises after procedure as recommended, follow up planned with [employer]ASSEMBLY ASSEMBLER and one more visit with Dr Polk. Explored option of using cranial sacral therapy as discussed previously to continue healing for . Given name and information on Olivier Ngo, therapist with [facility]. Of note: the continuous eye drainage noted bilaterally with Isaac is nearly completely gone. Mom states that started clearing up 2 days post tongue tie release . Mom notes has improved suck skills with release of tongue tie. Infant able to extend tongue past lower lip, attempts to move side to side with stimulation, cups and curls tongue with suck exercises. Baby to breast and latches well, no longer noted to have biting motion of jaw, mom does not feel biting sensation with feed. States feels deeper pull of breast into mouth, no pain associated with feed. Infant more organized and rhythmic with suck, swallow, breathe pattern. no longer struggles with let down of milk. Mom states it is incredible the differences I can see with all these things coming together . Will continue with therapies until released from provider and will follow up with LC as well. Will call if neds assistance with referral to Olivier Ngo for cranial sacral therapy. Leaves ambulatory with no further questions today.
== END 2024-02-01 14:00 | disposition home or self-care (01) ==
LOC: FBCO 08:54
PROVIDERS: PCP Family Medicine; Visit Provider Obstetrics & Gynecology
DX: Z39.1 Encounter for care and examination of lactating mother (principal)

== ENCOUNTER 2024-04-14 10:32 | Outpatient (OUT) | payer OTHER, SELFPAY ==
--- NOTE | 2024-04-14 10:38 | US_ITS ---
The [address] [address] Patient Name: SANDIP NOWAK MRN: [id number] date: 1995 Sex: F Assigned Patient Location: Current Patient Location: Accession/Order Number: [id number] Exam Date: 04/14/2024 10:40 Report Date: 04/14/2024 14:16 At the request of: BENJIE MOODY Procedure: US pelvis w/ transvaginal EXAMINATION: US pelvis w/ transvaginal HISTORY: Bacterial Infection Due to Mycoplasma A49.3, Pelvic Pain COMPARISON: No relevant comparison available. FINDINGS: The uterus is normal in size, contour and myometrial echotexture measuring 7.2 x 3.2 x 5.1 cm. No focal myometrial mass. The endometrium measures 10 mm, normal. The right ovary is normal measuring 2.6 x 2.4 x 2.3 cm. Normal color Doppler flow. Multiple anechoic areas measuring up to 1.1 cm, follicles versus cysts. The left ovary measures 1.9 x 2.2 x 1.7 cm. Normal color and Doppler flow. Multiple anechoic areas measuring up to 1 cm, follicle versus cyst No free fluid US/US pelvis w/ transvaginal IMPRESSION: No acute abnormality Electronically authenticated by: LINCOLN SMITH Date: 04/14/2024 14:16
== END 2024-04-14 10:33 | disposition home or self-care (01) ==
LOC: US 10:32
PROVIDERS: PCP Family Medicine; Visit Provider Obstetrics & Gynecology
DX: A49.3 Mycoplasma infection, unspecified site (principal); R10.2 Pelvic and perineal pain
CPT/HCPCS: 76830; 76856